=== PATIENT | male | born 1970 | race Caucasian/White ===

== ENCOUNTER 2020-05-05 15:32 | Outpatient (REF) | payer OTHER, SELFPAY | END 2020-05-05 15:33 | disposition home or self-care (01) | LOC: HO.LAB 15:32 | PROVIDERS: PCP Internal Medicine; Visit Provider Internal Medicine | DX: Z20.828 Contact with and (suspected) exposure to other viral communicable diseases (principal) | CPT/HCPCS: C9803; U0003 ==

== ENCOUNTER 2020-05-27 07:55 | Outpatient (REF) | payer OTHER, SELFPAY | END 2020-05-27 07:56 | disposition home or self-care (01) | LOC: HO.LAB 07:55 | PROVIDERS: PCP Internal Medicine; Visit Provider Internal Medicine | DX: Z20.828 Contact with and (suspected) exposure to other viral communicable diseases (principal) | CPT/HCPCS: C9803; U0003 ==

== ENCOUNTER 2020-07-29 07:18 | Outpatient (REF) | payer OTHER, SELFPAY | END 2020-07-29 07:19 | disposition home or self-care (01) | LOC: HO.LAB 07:18 | PROVIDERS: Visit Provider Internal Medicine | DX: Z20.822 Contact with and (suspected) exposure to COVID-19 (principal) | CPT/HCPCS: 36415; C9803; U0003; U0005 ==

== ENCOUNTER 2020-08-09 12:10 | Outpatient (REF) | payer OTHER, SELFPAY | END 2020-08-09 12:11 | disposition home or self-care (01) | LOC: HO.LAB 12:10 | PROVIDERS: Visit Provider Internal Medicine | DX: Z20.822 Contact with and (suspected) exposure to COVID-19 (principal) | CPT/HCPCS: 36415; C9803; U0003; U0005 ==

== ENCOUNTER 2020-11-06 16:27 | Outpatient (REF) | payer OTHER, SELFPAY ==
[2020-11-06 18:03] LABS: Appearance Urine HAZY; Color Urine YELLOW; Glucose Urine UA NEG (NEG); Leukocyte Esterase Urine NEG (NEG); Nitrite Urine NEG (NEG); Urine Blood NEG (NEG); Urine Ketones NEG (NEG); Urine Protein NEG (NEG-TRACE)
[2020-11-06 18:13] LABS: Bacteria Urine TRACE /LPF; Mucus Urine TRACE /LPF; RBC Urine 0-2 /HPF (0); WBC Urine 0-2 /HPF (0-4)
[2020-11-06 18:28] LABS: Total Protein Urine Random < 7 mg/dL (<12)
[2020-11-06 18:29] LABS: Anion Gap 12 (12-20); Blood Urea Nitrogen 23 mg/dL (9-16); Calcium 9.1 mg/dL (8.4-10.2); Carbon Dioxide 26 mmol/L (22-29); Chloride 107 mmol/L (96-108); Estimated Glomerular Filt Rate 49; Glucose Random 105 mg/dL (60-115); Potassium 4.4 mmol/L (3.3-5.1); Sodium 141 mmol/L (135-145)
[2020-11-06 18:39] LABS: Creatinine Urine 224.27 mg/dL
== END 2020-11-06 16:28 | disposition home or self-care (01) ==
LOC: HO.LAB 16:27
PROVIDERS: PCP Internal Medicine; Visit Provider Internal Medicine Nephrology
DX: N18.31 Chronic kidney disease, stage 3a (principal)
CPT/HCPCS: 36415; 80048; 81001; 84156

== ENCOUNTER 2021-06-07 11:16 | Outpatient (REF) | payer OTHER, SELFPAY ==
[2021-06-07 14:32] LABS: COVID-19 Test Negative (Negative); IDNOW Serial# 16C4AD1C
== END 2021-06-07 11:17 | disposition home or self-care (01) ==
LOC: HO.LAB 11:16
PROVIDERS: Visit Provider Internal Medicine
DX: Z20.822 Contact with and (suspected) exposure to COVID-19 (principal)
CPT/HCPCS: 36415; 87635; C9803

== ENCOUNTER 2021-11-14 12:08 | Outpatient (REF) | payer OTHER, SELFPAY ==
[2021-11-14 12:31] LABS: MANUAL DIFF FLAG NO
[2021-11-14 13:26] LABS: Basophils Percent Auto 0.2 % (0-2); Eosinophils Absolute Auto 0.2 X10*3/uL (0.0-0.4); Hematocrit 44.2 % (42.0-52.0); Hemoglobin 14.3 g/dl (14.0-18.0); Imm Gran Abs Auto 0.01 X10*3/uL (0.00-0.03); Imm Gran Pct Auto 0.2 % (0.0-0.4); Lymphocytes Absolute Auto 2.1 X10*3/uL (1.2-4.9); Lymphocytes Percent Auto 35.8 % (20-40); Mean Corpuscular HGB Conc 32.4 g/dl (31.0-36.0); Mean Corpuscular Hemoglobin 29.3 pg (27.0-33.0); Mean Corpuscular Volume 90.6 fL (80.0-98.0); Mean Platelet Volume 9.8 fL (9.4-12.4); Monocytes Absolute Auto 0.4 X10*3/uL (0.1-1.2); Monocytes Percent Auto 6.9 % (2-11); Neutrophils Absolute Auto 3.2 x10*3/uL (2.0-8.3); Neutrophils Percent Auto 52.9 % (45-73); Platelet Count 249 X10*3/uL (160-400); Red Blood Count 4.88 X10*6/uL (4.60-5.80); Red Cell Distribution Width 13.2 % (11.0-16.0)
[2021-11-14 13:49] LABS: Appearance Urine CLEAR; Color Urine YELLOW; Glucose Urine UA NEG (NEG); Leukocyte Esterase Urine NEG (NEG); Nitrite Urine NEG (NEG); PH 5.5 (5.0-8.0); Specific Gravity - Urine 1.025 (1.005-1.025); Urine Blood NEG (NEG); Urine Ketones NEG (NEG); Urine Protein NEG (NEG-TRACE)
[2021-11-14 14:12] LABS: Vitamin D 25-OH Total 16.4 ng/mL (>30)
[2021-11-14 14:21] LABS: RBC Urine 0 /HPF (0); WBC Urine 0 /HPF (0-4)
[2021-11-14 14:43] LABS: Anion Gap 14 (12-20); Blood Urea Nitrogen 18 mg/dL (9-16); Calcium 9.5 mg/dL (8.4-10.2); Carbon Dioxide 25 mmol/L (22-29); Chloride 104 mmol/L (96-108); Estimated Glomerular Filt Rate 42; Potassium 4.7 mmol/L (3.3-5.1); Sodium 138 mmol/L (135-145); Uric Acid 5.7 mg/dL (3.4-7.0)
[2021-11-14 14:55] LABS: Creatinine Urine 134.91 mg/dL; Total Protein Urine Random < 7 mg/dL (<12)
[2021-11-15 13:12] LABS: Calcium (PTHI) 9.5 mg/dL (8.6-10.3); PTHI 215 pg/mL (16-77)
== END 2021-11-14 12:09 | disposition home or self-care (01) ==
LOC: HO.LAB 12:08
PROVIDERS: PCP Internal Medicine; Visit Provider Internal Medicine Nephrology
DX: N18.31 Chronic kidney disease, stage 3a (principal)
CPT/HCPCS: 36415; 80051; 81001; 82306; 82310; 82565; 83970; 84156; 84520; 84550; 85025

== ENCOUNTER 2022-08-20 17:17 | Outpatient (REF) | payer OTHER, SELFPAY ==
[2022-08-20 17:28] LABS: MANUAL DIFF FLAG NO
[2022-08-20 19:45] LABS: Basophils Percent Auto 0.1 % (0-2); Eosinophils Absolute Auto 0.2 X10*3/uL (0.0-0.4); Eosinophils Percent Auto 3.6 % (0-4); Hemoglobin 14.9 g/dl (14.0-18.0); Imm Gran Abs Auto 0.02 X10*3/uL (0.00-0.03); Imm Gran Pct Auto 0.3 % (0.0-0.4); Lymphocytes Absolute Auto 2.7 X10*3/uL (1.2-4.9); Mean Corpuscular HGB Conc 33.1 g/dl (31.0-36.0); Mean Corpuscular Hemoglobin 29.7 pg (27.0-33.0); Mean Corpuscular Volume 89.8 fL (80.0-98.0); Monocytes Absolute Auto 0.4 X10*3/uL (0.1-1.2); Monocytes Percent Auto 6.6 % (2-11); Neutrophils Absolute Auto 3.3 x10*3/uL (2.0-8.3); Neutrophils Percent Auto 49.4 % (45-73); Platelet Count 269 X10*3/uL (160-400); Red Blood Count 5.01 X10*6/uL (4.60-5.80); Red Cell Distribution Width 13.3 % (11.0-16.0); White Blood Count 6.7 X10*3/uL (4.8-10.8)
[2022-08-20 20:04] LABS: Alanine Aminotransferase 36 U/L (0-40); Albumin Level 4.5 g/dL (3.5-5.0); Alkaline Phosphatase 82 U/L (39-117); Anion Gap 16 (12-20); Aspartate Amino Transferase 21 U/L (5-37); Bilirubin Total 0.4 mg/dL (0.0-1.0); Blood Urea Nitrogen 20 mg/dL (9-16); Calcium 9.1 mg/dL (8.4-10.2); Carbon Dioxide 23 mmol/L (22-29); Chloride 107 mmol/L (96-108); Estimated Glomerular Filt Rate 44; Glucose Random 77 mg/dL (60-115); Lipase 31 U/L (8-78); Potassium 5.2 mmol/L (3.3-5.1); Sodium 141 mmol/L (135-145); Total Protein 7.4 g/dL (6.5-8.0)
== END 2022-08-20 17:18 | disposition home or self-care (01) ==
LOC: HO.LAB 17:17
PROVIDERS: PCP Internal Medicine; Visit Provider Nurse Practitioner Family
DX: R10.12 Left upper quadrant pain (principal)
CPT/HCPCS: 36415; 80053; 83690; 85025

== ENCOUNTER 2022-09-03 08:08 | Outpatient (REF) | payer OTHER, SELFPAY ==
--- NOTE | ~2022-09-03 | US_ITS ---
EXAMINATION: US ABDOMEN LIMITED CLINICAL INFORMATION: Left upper quadrant pain. COMPARISON: CT abdomen and pelvis without contrast 01/05/2013. TECHNIQUE: Real-time imaging of the abdominal viscera. FINDINGS: LEFT KIDNEY: There is a simple cyst measuring 0.7 cm in the mid to lower pole, for which no imaging follow-up is recommended. There is a focal area of parenchymal thinning in the lateral surface of the lower pole, nonspecific. No hydronephrosis or renal calculi. The kidney measures 10.3 cm in maximum dimension. SPLEEN: Normal. The spleen measures 10.9 cm in maximum dimension. US/US abdomen limited IMPRESSION: No acute sonographic abnormalities to explain the patient's symptoms.
== END 2022-09-03 08:09 | disposition home or self-care (01) ==
LOC: HO.US 08:08
PROVIDERS: PCP Internal Medicine; Visit Provider Nurse Practitioner Family
DX: R10.12 Left upper quadrant pain (principal)
CPT/HCPCS: 76705

== ENCOUNTER 2022-10-29 15:48 | Outpatient (AMB) | payer OTHER, SELFPAY ==
--- NOTE | 2022-10-29 16:07 | MHC.PC.OV ---
Vital Signs 10/29/22 16:08 Height 5 ft 7.5 in Weight 223 lb BMI 34.4 BP 124/82 Blood Pressure Location Lt brachial Position Sitting Pulse 74 Pulse Source Pulse Oximeter Pulse Oximetry (%) 97 Oxygen Delivery Method Room Air Intake Visit Reasons: Annul PE Intake Note: Patient is here for physical exam. [employer] Vehicle Required: No Accompanied by: Self / Same As Patient Allergies NSAIDS (Non-Steroidal Anti-Inflamma [NSAIDS (NON-STEROIDAL ANTI-INFLAMMA] Allergy (Severe, Verified 03/26/23 15:14) ANGIOEDEMA aspirin Allergy (Unknown, Verified 03/26/23 15:14) swollen face ibuprofen Allergy (Unknown, Verified 03/26/23 15:14) swollen face shellfish derived Allergy (Unknown, Verified 03/26/23 15:14) rash Medication List - Last Reconciled 10/29/22 by Compa Whiting MD simethicone (Gas Relief (simethicone)) 80 mg PO TID-QID PRN Tobacco use date assessed: 10/29/22 HPI Annul PE HPI Details Patient comes in today for his annual physical examination States that he feels okay Was seen here last month by another provider for intermittent abdominal bloating and he would like to know how his labs came out He denies any headaches or dizziness Denies any chest pains, no shortness of breath No nausea /vomiting, no abdominal pain No change in bowel habits noted States that he has been experiencing some urinary frequency lately, especially at night; denies any dysuria Would also like to get a referral to get his hearing checked - states that he has been experiencing a recurrent ringing sensation in his left ear lately and has noticed some decrease in his hearing as well States that he has never had a colonoscopy done in the past FORMERLY [facility], [facility]1983 Medical History Allergic rhinitis Obesity (BMI 30-39.9) Vitamin D deficiency Pure hypercholesterolemia Chronic kidney disease, stage III (moderate) Surgical History History of surgery Family History Father No problems noted. Mother No problems noted. Sister No problems noted. Son No problems noted. Other FH: mental illness Substance abuse Social History Housing: House Alcohol intake: current Alcohol intake frequency: a few times a week Patient Tobacco Use Status: Current someday Tobacco user Years Smoked: pt states rarely e-Cigarette/Vaping Use: Never Used service: No Current occupational status: employed Cognitive needs: No Hearing needs: No Vision needs: No Questionnaire PHQ-9 Over the last 2 weeks, how often have you been bothered by any of the following problems? 1. Little interest or pleasure in doing things: not at all 2. Feeling down, depressed, or hopeless: not at all 3. Trouble falling or staying asleep, or sleeping too much: not at all 4. Feeling tired or having little energy: not at all 5. Poor appetite or overeating: not at all 6. Feeling bad about yourself - or that you are a failure or have let yourself or your family down: not at all 7. Trouble concentrating on things, such as reading the newspaper or watching television: not at all 8. Moving or speaking so slowly that other people could have noticed. Or the opposite - being so fidgety or restless that you have been moving around a lot more than usual: not at all 9. Thoughts that you would be better off or of hurting yourself in some way: not at all Total score: 0 Depression Screening Interpretation: Negative 27739 - PHQ-9 Billing: Yes Source: Developed by Drs. Scottie Conde, Lisette Tillman, Silas Patterson and colleagues, with an educational enoch from [employer]. Thrive Questionnaire Date Thrive assessed: 10/29/22 I am a: Patient What is your living situation today?: I have a steady place to live Within the past 12 months, did the food you bought not last and you didn't have the money to get more?: Never true Within the past 12 months, did you worry whether your food would run out before you got money to buy more?: Never true Do you have trouble paying for medicines?: No Do you have trouble getting transportation to medical appointments?: No Do you have trouble paying your heating and electricity bill?: No Do you have trouble taking care of your child, family member or friend?: No Do you have trouble with day-to-day activities such as bathing, preparing meals, shopping, managing finances, etc.?: No Are you currently unemployed and looking for a job?: No Are you interested in more education?: No Currently or been in a relationship where the following occur: no concerns reported AUDIT C Alcohol Use Questionnaire (AUDIT-C) 1. How often do you have a drink containing alcohol?: 2-3 times a week 2. How many drinks containing alcohol do you have on a typical day when you are drinking?: 1 or 2 3. How often do you have six or more drinks on one occasion?: Never Total Score: 3 Score Reviewed/Action Taken: Yes NESSA-7 AMB Questionnaire NESSA-7 Date NESSA - 7 assessed: 10/29/22 Feeling nervous, anxious, or on edge: 0 = Not at all Not being able to stop or control worryin = Not at all Worrying too much about different things: 0 = Not at all Trouble relaxin = Not at all Being so restless that it is hard to sit still: 0 = Not at all Becoming easily annoyed or irritable: 0 = Not at all Feeling afraid as if something awful might happen: 0 = Not at all Total NESSA-7 score (0-4 normal; 5-9 mild; 10-14 moderate; 15-21 severe): 0 Source: Developed by Drs. Scottie Conde, Lisette Tillman, Silas Patterson and colleagues, with an educational enoch from [employer]. NESSA-7 Assessment Billing NESSA-7 Assessment Tool: NESSA-7 Assessment 88497 Review of Systems Const Denies chills, Denies fatigue, Denies fever(s), Denies headache(s), Denies malaise and Denies weakness Eyes Denies blurry vision, Denies change in vision, Denies irritation and Denies itchy eyes ENT Denies dysphagia, Denies dizziness, Denies otalgia, Denies headache(s), Denies nasal congestion, Denies neck pain, Denies odynophagia and Denies sore throat Card Denies chest pain, Denies rapid heart rate, Denies irregular heart rhythm, Denies palpitations and Denies dyspnea Resp Denies chest congestion, Denies cough, Denies dyspnea and Denies wheezing GI Denies abdominal pain, Denies bloating, Denies constipation, Denies dysphagia, Denies heartburn, Denies diarrhea, Denies nausea, Denies odynophagia and Denies vomiting Denies hematuria, Denies difficulty urinating, Denies dysuria, Denies urinary frequency and Denies urinary urgency Musc Denies back pain, Denies arthralgias, Denies joint swelling, Denies muscle weakness and Denies neck pain Skin/Breast Denies change in pigmentation, Denies lesions, Denies rash and Denies unusual bruising Neuro Denies dizziness, Denies headache(s), Denies paresthesias and Denies weakness Endo Denies fatigue and Denies palpitations Aller/Immun Denies itchy eyes and Denies wheezing Physical exam (Primary Care) Vital Signs: Last Vital Signs Pulse 74 10/29/22 16:08 BP 124/82 10/29/22 16:08 Pulse Ox 97 10/29/22 16:08 Oxygen Delivery Method Room Air 10/29/22 16:08 BMI result Body Mass Index 34.4 Tobacco/Smoking Status: Tobacco use Status Tobacco use date assessed 10/29/22 10/29/22 16:13 Patient Tobacco Use Status Current someday Tobacco 10/29/22 16:13 e-Cigarette/Vaping Use Never Used 10/29/22 16:13 PHQ-9: PHQ-9 Score PHQ-9: Total score 0 10/29/22 17:06 Depression Screening Interpretation: Negative Thrive Assessment: Date of Thrive Assessment Date Thrive assessed 10/29/22 10/29/22 16:13 Currently or been in a relationship where the following occur: no concerns reported Const General: no acute distress, alert and awake Orientation/consciousness: patient oriented x3 HENMT Head: Yes normocephalic and Yes atraumatic Ears: external ears normal, TM's normal bilaterally and EAC's normal General nose exam: No nasal discharge present Face and sinus: Yes normal facial exam and Yes sinuses nontender Teeth and gingiva: dentition normal Throat: Yes posterior oropharynx normal and Yes tonsils normal (no TP congestion) Eyes Eyelids: Yes eyelids normal Conjunctivae: conjunctivae normal Pupils: Equal, round and reactive pupils present EOM: EOMs intact bilaterally Neck Neck: Yes no lymphadenopathy and Yes supple Thyroid: Thyroid normal Resp Auscultation: clear to auscultation bilaterally, no rales and no wheezes Cardio Rate: regular rate Rhythm: regular rhythm Heart sounds: no murmurs GI Palpation (GI): Soft to palpation, nontender and No hepatosplenomegaly present Auscultation: normal bowel sounds General: Yes no CVA tenderness Back/Spine/Pelvis Back: no CVA tenderness Thoracic/Lumbar Spine: thoracic and lumbar spine normal to inspection Skin Lesions: no lesions Rashes: no rashes Neuro General: patient oriented x3, moves all extremities, no focal motor deficits and CN's II-XI intact bilaterally Cranial nerves: Yes Equal, round and reactive pupils present Cognition (Neuro): normal cognition Gait exam (Neuro): Normal gait present Extrem General: Yes no clubbing, cyanosis or edema Results Reviewed Results Reviewed: Laboratory Tests 08/20/22 17:26 WBC 6.7 Hgb 14.9 Hct 45.0 Plt Count 269 Sodium 141 Potassium 5.2 H Creatinine 1.66 H Estimated GFR 44 Random Glucose 77 Calcium 9.1 AST 21 ALT 36 Lipase 31 Assessment and Plan Assessment & Plan (1) Annual physical exam: Code(s): Z00.00 - Encounter for general adult medical examination without abnormal findings Plan: Check labs MERCEDES Results of his labs done last month reviewed and discussed with patient (2) Pure hypercholesterolemia: Code(s): E78.00 - Pure hypercholesterolemia, unspecified Plan: Reinforced low cholesterol diet - he is reminded that his cholesterol levels were still elevated when last checked back in 2019 Will recheck his fasting lipids MERCEDES for follow up (3) Chronic kidney disease, stage III (moderate): Comment: sees Dr. Fung for nephrology follow up since 2013 Code(s): N18.30 - Chronic kidney disease, stage 3 unspecified Qualifiers: Chronic kidney disease stage 3 subtype: stage 3b (GFR 30-44) Qualified Code(s): N18.32 - Chronic kidney disease, stage 3b Plan: Stable Renal Bx done in the past only showed (+) tubular injury Will recheck his serum creatinine and GFR for follow up Follow up with nephrology (Dr. Fung) as scheduled (4) Vitamin D deficiency: Code(s): E55.9 - Vitamin D deficiency, unspecified Plan: Advised that his Vitamin D level was low when last checked Will start him back on Vitamin D3 2000 units QD (5) Hyperparathyroidism: Code(s): E21.3 - Hyperparathyroidism, unspecified Plan: Serum PTH level was significantly elevated when checked last year in 11/2021 - is likely secondary hyperparathyroidism due to his low Vitamin D level Will start him back on Vitamin D and will recheck his PTH level in a few months when his Vitamin D level is corrected (6) Allergic rhinitis: Code(s): J30.9 - Allergic rhinitis, unspecified Qualifiers: Allergic rhinitis trigger: unspecified Allergic rhinitis seasonality: unspecified Qualified Code(s): J30.9 - Allergic rhinitis, unspecified Plan: Continue Fluticasone 50 mcg nasal spray QD PRN (7) Tinnitus of left ear: Code(s): H93.12 - Tinnitus, left ear Plan: Per request, will refer him for hearing evaluation (8) Erectile dysfunction: Code(s): N52.9 - Male erectile dysfunction, unspecified Qualifiers: Erectile dysfunction type: unspecified Qualified Code(s): N52.9 - Male erectile dysfunction, unspecified Plan: Continue Sildenafil 50 mg QD PRN (9) Urinary frequency: Code(s): R35.0 - Frequency of micturition Plan: Likely due to BPH Will check his PSA level MERCEDES for further evaluation Will start patient for now on Tamsulosin 0.4 mg Q HS Will consider referring him to urology for further evaluation and management, especially if his PSA comes back elevated (10) Obesity (BMI 30-39.9): Code(s): E66.9 - Obesity, unspecified Plan: Reinforced diet/exercise as tolerated/lose weight (11) Encounter for screening for malignant neoplasm of colon: Code(s): Z12.11 - Encounter for screening for malignant neoplasm of colon Plan: Will refer patient to GI for screening colonoscopy Plan Follow up in 4 months Orders: Orders Comprehensive Merlin. Panel Fast 10/29/22 Z00.00 - Encounter for general adult medical examination without abnormal findings, N18.30 - Chronic kidney disease, stage 3 unspecified Lipid Panel 10/29/22 E78.00 - Pure hypercholesterolemia, unspecified, Z00.00 - Encounter for general adult medical examination without abnormal findings, N18.30 - Chronic kidney disease, stage 3 unspecified Prostate Specific Antigen Scr 10/29/22 Z00.00 - Encounter for general adult medical examination without abnormal findings, N18.30 - Chronic kidney disease, stage 3 unspecified UA CC w/rflx Micro + Cult 10/29/22 R30.0 - Dysuria, Z00.00 - Encounter for general adult medical examination without abnormal findings, N18.30 - Chronic kidney disease, stage 3 unspecified TSH reflex Free T4 10/29/22 E78.00 - Pure hypercholesterolemia, unspecified, Z00.00 - Encounter for general adult medical examination without abnormal findings, N18.30 - Chronic kidney disease, stage 3 unspecified Hemoglobin A1c 10/29/22 E11.9 - Type 2 diabetes mellitus without complications, Z00.00 - Encounter for general adult medical examination without abnormal findings, N18.30 - Chronic kidney disease, stage 3 unspecified Magnesium 10/29/22 E83.42 - Hypomagnesemia, Z00.00 - Encounter for general adult medical examination without abnormal findings, N18.30 - Chronic kidney disease, stage 3 unspecified Vitamin D 25-OH Total 10/29/22 E55.9 - Vitamin D deficiency, unspecified, Z00.00 - Encounter for general adult medical examination without abnormal findings, N18.30 - Chronic kidney disease, stage 3 unspecified Complete Blood Count Auto Diff 10/29/22 Z00.00 - Encounter for general adult medical examination without abnormal findings, N18.30 - Chronic kidney disease, stage 3 unspecified Referrals Speech and Hearing Referral H91.90 - Unspecified hearing loss, unspecified ear, H93.12 - Tinnitus, left ear Gastroenterology Referral Z12.11 - Encounter for screening for malignant neoplasm of colon Medications: New tamsulosin 0.4 mg PO BEDTIME 90 caps 1RF 90 days N40.1 - Benign prostatic hyperplasia with lower urinary tract symptoms, R35.1 - Nocturia cholecalciferol (vitamin D3) 50 mcg PO DAILY 90 caps 3RF 90 days E55.9 - Vitamin D deficiency, unspecified Coding Level of Care Code Est Pt Prev Care 40-64y(56016) Diagnoses Annual physical exam Z00.00 Pure hypercholesterolemia E78.00 Stage 3b chronic kidney disease N18.32 Chronic kidney disease stage 3 subtype: stage 3b (GFR 30-44) Vitamin D deficiency E55.9 Hyperparathyroidism E21.3 Allergic rhinitis, unspecified seasonality, unspecified trigger J30.9 Allergic rhinitis trigger: unspecified Allergic rhinitis seasonality: unspecified Tinnitus of left ear H93.12 Erectile dysfunction, unspecified erectile dysfunction type N52.9 Erectile dysfunction type: unspecified Urinary frequency R35.0 Obesity (BMI 30-39.9) E66.9 Encounter for screening for malignant neoplasm of colon Z12.11 Additional Codes NESSA-7 Assessment Billing - NESSA-7 Assessment Tool: NESSA-7 Assessment [id number] ([id number])
[2022-10-29 16:08] VITALS: BP 124/82; PULSE 74; O2SAT 97; BMI 34.4
== END 2022-10-29 17:09 | disposition home or self-care (01) ==
LOC: HO.HMGH 15:48
PROVIDERS: PCP Internal Medicine; Visit Provider Internal Medicine
DX: Z00.00 Encounter for general adult medical examination without abnormal findings (principal); N18.32 Chronic kidney disease, stage 3b; E21.3 Hyperparathyroidism, unspecified; E78.00 Pure hypercholesterolemia, unspecified; E55.9 Vitamin D deficiency, unspecified; J30.9 Allergic rhinitis, unspecified; H93.12 Tinnitus, left ear; N52.9 Male erectile dysfunction, unspecified; R35.0 Frequency of micturition; E66.9 Obesity, unspecified
CPT/HCPCS: 99396

== ENCOUNTER 2022-11-22 07:14 | Outpatient (REF) | payer OTHER, SELFPAY ==
[2022-11-22 07:23] LABS: MANUAL DIFF FLAG NO
[2022-11-22 07:47] LABS: Basophils Percent Auto 0.2 % (0-2); Eosinophils Absolute Auto 0.2 X10*3/uL (0.0-0.4); Eosinophils Percent Auto 3.8 % (0-4); Hematocrit 45.4 % (42.0-52.0); Hemoglobin 14.7 g/dl (14.0-18.0); Imm Gran Abs Auto 0.03 X10*3/uL (0.00-0.03); Imm Gran Pct Auto 0.5 % (0.0-0.4); Lymphocytes Absolute Auto 2.2 X10*3/uL (1.2-4.9); Lymphocytes Percent Auto 36.3 % (20-40); Mean Corpuscular HGB Conc 32.4 g/dl (31.0-36.0); Mean Corpuscular Hemoglobin 29.5 pg (27.0-33.0); Mean Platelet Volume 9.8 fL (9.4-12.4); Monocytes Absolute Auto 0.4 X10*3/uL (0.1-1.2); Monocytes Percent Auto 7.1 % (2-11); Neutrophils Absolute Auto 3.2 x10*3/uL (2.0-8.3); Neutrophils Percent Auto 52.1 % (45-73); Platelet Count 242 X10*3/uL (160-400); Red Blood Count 4.99 X10*6/uL (4.60-5.80); Red Cell Distribution Width 13.4 % (11.0-16.0)
[2022-11-22 07:55] LABS: Estimated Average Glucose 97 mg/dL
[2022-11-22 08:31] LABS: Alanine Aminotransferase 47 U/L (0-40); Albumin Level 4.2 g/dL (3.5-5.0); Alkaline Phosphatase 89 U/L (39-117); Anion Gap 12 (12-20); Aspartate Amino Transferase 25 U/L (5-37); Bilirubin Total 0.4 mg/dL (0.0-1.0); Blood Urea Nitrogen 26 mg/dL (9-16); Calcium 9.2 mg/dL (8.4-10.2); Carbon Dioxide 23 mmol/L (22-29); Chloride 109 mmol/L (96-108); Cholesterol 252 mg/dL; Estimated Glomerular Filt Rate 49; Glucose Fasting 98 mg/dL (60-99); HDL Cholesterol 35 mg/dL; LDL Cholesterol Calculated 171 mg/dl; Magnesium 2.7 mg/dL (1.6-2.6); Potassium 4.9 mmol/L (3.3-5.1); Sodium 139 mmol/L (135-145); Total Protein 7.1 g/dL (6.5-8.0); Triglycerides 234 mg/dL
[2022-11-22 08:37] LABS: Prostate Specific Antigen Scr 0.67 ng/mL (<0.05-4.0); TSH reflex Free T4 2.47 uIU/mL (0.32-4.0)
[2022-11-22 08:49] LABS: Appearance Urine Clear; Color Urine Yellow; Glucose Urine UA Negative (Negative); Leukocyte Esterase Urine Negative (Negative); Nitrite Urine Negative (Negative); Specific Gravity - Urine 1.025 (1.005-1.025); Urine Blood Negative (Negative); Urine Ketones Negative (Negative); Urine Protein Negative (Neg-Trace)
== END 2022-11-22 07:15 | disposition home or self-care (01) ==
LOC: HO.LAB 07:14
PROVIDERS: PCP Internal Medicine; Referring Provider Internal Medicine Nephrology; Visit Provider Internal Medicine
DX: Z00.00 Encounter for general adult medical examination without abnormal findings (principal); Z12.5 Encounter for screening for malignant neoplasm of prostate; N18.30 Chronic kidney disease, stage 3 unspecified; R30.0 Dysuria; E11.9 Type 2 diabetes mellitus without complications; E55.9 Vitamin D deficiency, unspecified; E78.00 Pure hypercholesterolemia, unspecified
CPT/HCPCS: 36415; 80053; 80061; 81003; 82306; 83036; 83735; 84153; 84443; 85025

== ENCOUNTER 2023-03-10 16:28 | Outpatient (AMB) | payer OTHER, SELFPAY ==
--- NOTE | 2023-03-10 16:29 | A.OFFPC_ITS ---
Vital Signs 03/10/23 16:30 Height 5 ft 7.5 in Weight 226 lb 2 oz BMI 34.9 BP 126/78 Blood Pressure Location Lt brachial Position Sitting Pulse 65 Pulse Source Pulse Oximeter Pulse Oximetry (%) 97 Oxygen Delivery Method Room Air Intake Visit Reasons: CKD Hearing Specialist Required: No Accompanied by: Self / Same As Patient Allergies NSAIDS (Non-Steroidal Anti-Inflamma [NSAIDS (NON-STEROIDAL ANTI-INFLAMMA] Allergy (Severe, Verified 03/26/23 15:14) ANGIOEDEMA aspirin Allergy (Unknown, Verified 03/26/23 15:14) swollen face ibuprofen Allergy (Unknown, Verified 03/26/23 15:14) swollen face shellfish derived Allergy (Unknown, Verified 03/26/23 15:14) rash Medication List - Last Reconciled 03/24/23 by Compa Whiting MD cholecalciferol (vitamin D3) 50 mcg PO DAILY 90 days fluticasone propionate 50 mcg/actuation 2 sprays intranasal DAILY PRN 30 days sildenafil 50 mg PO DAILY PRN simethicone (Gas Relief (simethicone)) 80 mg PO TID-QID PRN tamsulosin 0.4 mg PO BEDTIME 90 days Tobacco use date assessed: 03/10/23 Dental Screening Dental Screen Date: 03/10/23 Did you have a dental visit in the last 12 months?: Yes Did you have a dental problem in the last 6 months where you did not have access to dental care?: No Was dental information given to patient?: Patient has dentist HPI CKD HPI Details Patient comes in today for his follow-up visit States that he feels okay He denies any headaches or dizziness Denies any chest pains, no shortness of breath No nausea/ vomiting, no abdominal pain No change in bowel habits noted Needs a couple of his Rx refilled Would like to know how he did on his labs done a few months ago [facility] Medical History Allergic rhinitis Obesity (BMI 30-39.9) Vitamin D deficiency Pure hypercholesterolemia Chronic kidney disease, stage III (moderate) Surgical History History of surgery Family History Father No problems noted. Mother No problems noted. Sister No problems noted. Son No problems noted. Other FH: mental illness Substance abuse Social History Housing: House Alcohol intake: current Alcohol intake frequency: a few times a week Patient Tobacco Use Status: Current someday Tobacco user Years Smoked: pt states rarely e-Cigarette/Vaping Use: Never Used service: No Current occupational status: employed Cognitive needs: No Hearing needs: No Vision needs: No Questionnaire PHQ-9 Over the last 2 weeks, how often have you been bothered by any of the following problems? 1. Little interest or pleasure in doing things: not at all 2. Feeling down, depressed, or hopeless: not at all 3. Trouble falling or staying asleep, or sleeping too much: not at all 4. Feeling tired or having little energy: not at all 5. Poor appetite or overeating: not at all 6. Feeling bad about yourself - or that you are a failure or have let yourself or your family down: not at all 7. Trouble concentrating on things, such as reading the newspaper or watching television: not at all 8. Moving or speaking so slowly that other people could have noticed. Or the opposite - being so fidgety or restless that you have been moving around a lot more than usual: not at all 9. Thoughts that you would be better off or of hurting yourself in some way: not at all Total score: 0 Depression Screening Interpretation: Negative 20121 - PHQ-9 Billing: Yes Source: Developed by Drs. Scottie Conde, Lisette Tillman, Silas Patterson and colleagues, with an educational enoch from [employer]. Thrive Questionnaire Date Thrive assessed: 03/10/23 I am a: Patient What is your living situation today?: I have a steady place to live Within the past 12 months, did the food you bought not last and you didn't have the money to get more?: Never true Within the past 12 months, did you worry whether your food would run out before you got money to buy more?: Never true Do you have trouble paying for medicines?: No Do you have trouble getting transportation to medical appointments?: No Do you have trouble paying your heating and electricity bill?: No Do you have trouble taking care of your child, family member or friend?: No Do you have trouble with day-to-day activities such as bathing, preparing meals, shopping, managing finances, etc.?: No Are you currently unemployed and looking for a job?: No Are you interested in more education?: No Please select the resources that you would like help with: None Currently or been in a relationship where the following occur: no concerns reported AUDIT C Alcohol Use Questionnaire (AUDIT-C) 1. How often do you have a drink containing alcohol?: 2-3 times a week 2. How many drinks containing alcohol do you have on a typical day when you are drinking?: 1 or 2 3. How often do you have six or more drinks on one occasion?: Never Total Score: 3 Score Reviewed/Action Taken: Yes NESSA-7 AMB Questionnaire NESSA-7 Date NESSA - 7 assessed: 03/10/23 Feeling nervous, anxious, or on edge: 0 = Not at all Not being able to stop or control worryin = Not at all Worrying too much about different things: 0 = Not at all Trouble relaxin = Not at all Being so restless that it is hard to sit still: 0 = Not at all Becoming easily annoyed or irritable: 0 = Not at all Feeling afraid as if something awful might happen: 0 = Not at all Total NESSA-7 score (0-4 normal; 5-9 mild; 10-14 moderate; 15-21 severe): 0 Source: Developed by Drs. Scottie Conde, Lisette Tillman, Silas Patterson and colleagues, with an educational enoch from [employer]. NESSA-7 Assessment Billing NESSA-7 Assessment Tool: NESSA-7 Assessment 97405 Review of Systems Const Denies chills, Denies fatigue, Denies fever(s) and Denies headache(s) ENT Denies dysphagia, Denies dizziness, Denies otalgia, Denies headache(s), Denies n cameron pain, Denies odynophagia and Denies sore throat Card Denies chest pain, Denies palpitations and Denies dyspnea Resp Denies cough and Denies dyspnea GI Denies abdominal pain, Denies constipation, Denies dysphagia, Denies heartburn, Denies diarrhea, Denies nausea, Denies odynophagia and Denies vomiting Denies dysuria, Denies nocturia and Denies urinary frequency Musc Denies neck pain Skin/Breast Denies rash Neuro Denies dizziness and Denies headache(s) Endo Denies fatigue and Denies palpitations Physical exam (Primary Care) Vital Signs: Last Vital Signs Pulse 65 03/10/23 16:30 BP 126/78 03/10/23 16:30 Pulse Ox 97 03/10/23 16:30 Oxygen Delivery Method Room Air 03/10/23 16:30 BMI result Body Mass Index 34.9 Tobacco/Smoking Status: Tobacco use Status Tobacco use date assessed 03/10/23 03/10/23 16:43 Patient Tobacco Use Status Current someday Tobacco 03/10/23 16:43 e-Cigarette/Vaping Use Never Used 03/10/23 16:43 PHQ-9: PHQ-9 Score PHQ-9: Total score 0 03/24/23 03:09 Depression Screening Interpretation: Negative Thrive Assessment: Date of Thrive Assessment Date Thrive assessed 03/10/23 03/10/23 16:43 Currently or been in a relationship where the following occur: no concerns reported Const General: no acute distress and alert HENMT Ears: TM's normal bilaterally and EAC's normal Throat: Yes posterior oropharynx normal and Yes tonsils normal (no TP congestion) Neck Neck: Yes no lymphadenopathy and Yes supple Resp Auscultation: clear to auscultation bilaterally, no rales and no wheezes Cardio Rate: regular rate Rhythm: regular rhythm Heart sounds: no murmurs GI Palpation (GI): Soft to palpation and nontender Auscultation: normal bowel sounds Skin General skin exam: no rashes or lesions noted Extrem General: Yes no clubbing, cyanosis or edema Results Reviewed Results Reviewed: Laboratory Tests 11/22/22 07:22 WBC 6.0 Hgb 14.7 Hct 45.4 Plt Count 242 Sodium 139 Potassium 4.9 Creatinine 1.53 H Estimated GFR 49 Fasting Glucose 98 Hemoglobin A1c % 5.0 Calcium 9.2 Magnesium 2.7 H AST 25 ALT 47 H Triglycerides 234 Cholesterol 252 LDL Cholesterol, Calc 171 HDL Cholesterol 35 PSA Screen 0.67 25-OH Vitamin D Total 22.0 TSH 2.47 Urine pH 5.0 Ur Specific [place] 1.025 Urine Protein Negative Urine Glucose (UA) Negative Urine Blood Negative Assessment and Plan Assessment & Plan (1) Pure hypercholesterolemia: Code(s): E78.00 - Pure hypercholesterolemia, unspecified Plan: Results of his labs done a few months ago reviewed and discussed with patient - advised that his serum cholesterol levels have improved slightly but are still elevated, with his LDL cholesterol at around 171 mg/dl and total cholesterol at 252 mg/dl Reinforced low cholesterol diet; patient prefers to continue with diet modification alone for now Will recheck his labs and fasting lipids in 4 months for follow up (2) Chronic kidney disease, stage III (moderate): Comment: sees Dr. Fung for nephrology follow up since 2013 Code(s): N18.30 - Chronic kidney disease, stage 3 unspecified Qualifiers: Chronic kidney disease stage 3 subtype: stage 3b (GFR 30-44) Qualified Code(s): N18.32 - Chronic kidney disease, stage 3b Plan: Stable - advised that his GFR and serum creatinine levels have actually improved slightly from previous Renal Bx done in the past only showed (+) tubular injury Follow up with nephrology (Dr. Fung) as scheduled (3) Vitamin D deficiency: Code(s): E55.9 - Vitamin D deficiency, unspecified Plan: Continue Vitamin D3 2000 units QD (4) Hyperparathyroidism: Code(s): E21.3 - Hyperparathyroidism, unspecified Plan: Serum PTH level was significantly elevated when last checked last year in 11/2021 - is likely secondary hyperparathyroidism due to Vitamin D deficiency Will correct Vitamin D level and recheck PTH in a few months (5) Allergic rhinitis: Code(s): J30.9 - Allergic rhinitis, unspecified Qualifiers: Allergic rhinitis seasonality: unspecified Allergic rhinitis trigger: unspecified Qualified Code(s): J30.9 - Allergic rhinitis, unspecified Plan: Continue Fluticasone 50 mcg nasal spray QD PRN (6) Erectile dysfunction: Code(s): N52.9 - Male erectile dysfunction, unspecified Qualifiers: Erectile dysfunction type: unspecified Qualified Code(s): N52.9 - Male erectile dysfunction, unspecified Plan: Continue Sildenafil 50 mg QD PRN (7) Obesity (BMI 30-39.9): Code(s): E66.9 - Obesity, unspecified Plan: Reinforced diet/exercise as tolerated/lose weight Plan Follow up in 4 months Orders: Orders TSH reflex Free T4 4 Months E78.00 - Pure hypercholesterolemia, unspecified, N18.30 - Chronic kidney disease, stage 3 unspecified Vitamin D 25-OH Total 4 Months E55.9 - Vitamin D deficiency, unspecified, N18.30 - Chronic kidney disease, stage 3 unspecified Testosterone, Free/Total 4 Months R79.89 - Other specified abnormal findings of blood chemistry, N52.9 - Male erectile dysfunction, unspecified Complete Blood Count Auto Diff 4 Months N18.30 - Chronic kidney disease, stage 3 unspecified Comprehensive [place]. Panel Fast 4 Months E78.00 - Pure hypercholesterolemia, unspecified, N18.30 - Chronic kidney disease, stage 3 unspecified Lipid Panel 4 Months E78.00 - Pure hypercholesterolemia, unspecified, N18.30 - Chronic kidney disease, stage 3 unspecified UA CC w/rflx Micro + Cult 4 Months R30.0 - Dysuria, N18.30 - Chronic kidney disease, stage 3 unspecified PTHI 4 Months E21.3 - Hyperparathyroidism, unspecified, N18.30 - Chronic kidney disease, stage 3 unspecified Medications: New sildenafil administer 30 minutes to 4 hours before activity 50 mg PO DAILY PRN 10 tabs 0RF sexual activity fluticasone propionate 50 mcg/actuation administer into each nostril 2 sprays intranasal DAILY PRN 16 grams 5RF allergy symptoms 30 days Coding Level of Care Code Est Pt Level 4 (33896) Diagnoses Pure hypercholesterolemia E78.00 Stage 3b chronic kidney disease N18.32 Chronic kidney disease stage 3 subtype: stage 3b (GFR 30-44) Vitamin D deficiency E55.9 Hyperparathyroidism E21.3 Allergic rhinitis, unspecified seasonality, unspecified trigger J30.9 Allergic rhinitis seasonality: unspecified Allergic rhinitis trigger: unspecified Erectile dysfunction, unspecified erectile dysfunction type N52.9 Erectile dysfunction type: unspecified Obesity (BMI 30-39.9) E66.9 Additional Codes NESSA-7 Assessment Billing - NESSA-7 Assessment Tool: NESSA-7 Assessment 85146 ([id number])
[2023-03-10 16:30] VITALS: BP 126/78; PULSE 65; O2SAT 97; BMI 34.9
== END 2023-03-10 17:18 | disposition home or self-care (01) ==
PROVIDERS: PCP Internal Medicine; Visit Provider Internal Medicine
DX: N18.32 Chronic kidney disease, stage 3b (principal); E21.3 Hyperparathyroidism, unspecified; Z68.34 Body mass index [BMI] 34.0-34.9, adult; E66.9 Obesity, unspecified; J30.9 Allergic rhinitis, unspecified; E78.00 Pure hypercholesterolemia, unspecified; E55.9 Vitamin D deficiency, unspecified; N52.9 Male erectile dysfunction, unspecified
CPT/HCPCS: 99214

== ENCOUNTER 2023-03-18 15:29 | Outpatient (REF) | payer OTHER, SELFPAY | END 2023-03-18 15:30 | disposition home or self-care (01) | LOC: HO.SH 15:29 | PROVIDERS: Visit Provider Internal Medicine | DX: H93.12 Tinnitus, left ear (principal) | CPT/HCPCS: 92557; 92567 ==

== ENCOUNTER 2023-03-26 15:00 | Outpatient (AMB) | payer OTHER, SELFPAY ==
--- NOTE | 2023-03-26 15:07 | A.OFFVIS_ITS ---
Intake Vital Signs 03/26/23 15:12 Height 5 ft 7.5 in Weight 222 lb 10.67 oz BMI 34.4 BP 134/80 Blood Pressure Location Lt brachial Position Sitting Pulse 65 Intake Visit Reasons: [place] Screening Intake Note: Timur presents in the office as a colonoscopy screening. CC: No concerns today. Allergies NSAIDS (Non-Steroidal Anti-Inflamma [NSAIDS (NON-STEROIDAL ANTI-INFLAMMA] Allergy (Severe, Verified 03/26/23 15:14) ANGIOEDEMA aspirin Allergy (Unknown, Verified 03/26/23 15:14) swollen face ibuprofen Allergy (Unknown, Verified 03/26/23 15:14) swollen face shellfish derived Allergy (Unknown, Verified 03/26/23 15:14) rash HPI [place] Screening HPI Details 52 year old? male with past medical hist ory of hyperparathyroidism, obesity, hypercholesteremia, CKD is here today for pre colonoscopy screening.? Patient was sent to us by his PCP.? This is his first colonoscopy screening.? Patient denies any gastrointestinal symptoms in the past or at present.? Denies any personal or family history of gastrointestinal disease, colon polyps, or cancer.? Denies history of difficulty with sedation or anesthesia in the past.? Negative for history of sleep apnea.? Denies any history of cardiac, renal, pulmonary, or hepatic disease.?? No history of infectious? diseases like hepatitis A, B, C, HIV or tuberculosis.? Patient is not on any anticoagulation therapy. [facility] Medical History Allergic rhinitis Obesity (BMI 30-39.9) Vitamin D deficiency Pure hypercholesterolemia Chronic kidney disease, stage III (moderate) Surgical History History of surgery Family History Father No problems noted. Mother No problems noted. Sister No problems noted. Son No problems noted. Other FH: mental illness Substance abuse Social History Housing: House Alcohol intake: current Alcohol intake frequency: a few times a week Patient Tobacco Use Status: Current someday Tobacco user Years Smoked: pt states rarely e-Cigarette/Vaping Use: Never Used service: No Current occupational status: employed Cognitive needs: No Hearing needs: No Vision needs: No Review of Systems Const Denies weight gain and Denies weight loss ENT Reports no additional complaints, Denies dysphagia and Denies odynophagia Card Reports no additional complaints Resp Reports no additional complaints GI Denies abdominal pain, Denies belching, Denies melena, Denies bloating, Denies change in bowel habits, Denies dysphagia, Denies excessive flatus, Denies dyspepsia, Denies heartburn, Denies diarrhea, Denies loose stools, Denies nausea, Denies odynophagia and Denies vomiting Reports no additional complaints Musc Reports no additional complaints Neuro Reports no additional complaints Psych Reports no additional complaints Endo Reports no additional complaints Physical Exam Vital Signs: Last Vital Signs Pulse 65 03/26/23 15:12 BP 134/80 03/26/23 15:12 BMI result Body Mass Index 34.4 Const General: healthy appearing, no acute distress and well developed Nutritional Appearance: obese Orientation/consciousness: patient oriented x3 HEENT Head: Yes normal to inspection, Yes normocephalic and Yes atraumatic Face and sinus: Yes normal facial exam Mouth: Normal oral and palatal mucosa present Throat: Yes posterior oropharynx normal, Yes tonsils normal and Yes uvula midline Eyes General: appearance normal, both eyes and all related structures Neck Neck: Yes normal visual inspection, Yes full ROM and Yes trachea midline Thyroid: Thyroid normal Resp Effort & Inspection: normal respiratory effort, able to speak in complete sentences, no tracheal deviation and symmetric chest movement Auscultation: clear to auscultation bilaterally Cardio Rate: regular rate Heart sounds: S1 normal heart sound present and S2 normal heart sound present GI Inspection: Yes normal to inspection, No distended and Yes obesity Palpation (GI): Soft to palpation, not firm, nontender and No hepatosplenomegaly present Auscultation: normal bowel sounds General: Yes no CVA tenderness Back/Spine/Pelvis Back: no CVA tenderness Skin General skin exam: elasticity normal, turgor normal and dry skin Neuro General: patient oriented x3 Psych Appearance: grossly normal Mental Status: mental status grossly normal Speech and movement: Normal speech and movement present Assessment & Plan Assessment & Plan (1) Screen for colon cancer: Code(s): Z12.11 - Encounter for screening for malignant neoplasm of colon Plan: Patient denies any GI, cardiac or respiratory symptoms.? Denies any issues with anesthesia in the past.? Denies any history of sleep apnea.? No history infectious diseases in the past or present.? Not on any anticoagulation thera py.? No family or personal history of colon cancer or polyps.? Patient denies melena, hematochezia, unintentional weight loss or ribbon like stools.? Discussed at length the pre-procedure,? prep, diet & medications as well as what to expect prior, during and after the procedure.?? Stressed the importance of good bowel prep. ?Recommended the use of Vaseline or Calmoseptine OTC & baby wipes with bowel movements to promote comfort.? ?Patient verbalizes understanding and agrees to plan of care.? She was given the opportunity to ask questions and all questions answered.? We will see her after the procedure.? Medications: New bisacodyl (Dulcolax (bisacodyl)) take 2 tabs at noon the day before your colonoscopy 20 mg (4 x 5 mg) PO ONCE 1 day 4 tabs 0RF Z12.11 - Encounter for screening for malignant neoplasm of colon polyethylene glycol 3350 (Miralax) As directed by gastroenterology department at [facility] 238 grams PO ONCE 238 grams 0RF Z12.11 - Encounter for screening for malignant neoplasm of colon Coding Level of Care Code New Pt Level 3 (28255) Diagnoses Screen for colon cancer Z12.11 Time Spent (min) 40 Comment 30 minutes spent with patient and additional 10 minutes spent reviewing his records.
[2023-03-26 15:12] VITALS: BP 134/80; PULSE 65; BMI 34.4
== END 2023-03-26 15:55 | disposition home or self-care (01) ==
PROVIDERS: PCP Internal Medicine; Visit Provider Nurse Practitioner Family
DX: Z12.11 Encounter for screening for malignant neoplasm of colon (principal); Z01.818 Encounter for other preprocedural examination
CPT/HCPCS: 99203

== ENCOUNTER → 2023-03-26 15:00 | Outpatient (BNVA) | payer OTHER, SELFPAY | PROVIDERS: PCP Internal Medicine; Visit Provider Nurse Practitioner Family ==

== ENCOUNTER 2023-07-11 07:56 | Outpatient (REF) | payer OTHER, SELFPAY ==
[2023-07-11 08:19] LABS: MANUAL DIFF FLAG NO
[2023-07-11 09:15] LABS: Appearance Urine Clear; Color Urine Yellow; Glucose Urine UA Negative (Negative); Leukocyte Esterase Urine Negative (Negative); Nitrite Urine Negative (Negative); PH 5.5 (5.0-9.0); Urine Blood Negative (Negative); Urine Ketones Negative (Negative); Urine Protein Negative (Neg-Trace)
[2023-07-11 09:18] LABS: Basophils Percent Auto 0.2 % (0-2); Eosinophils Absolute Auto 0.2 X10*3/uL (0.0-0.4); Eosinophils Percent Auto 3.3 % (0-4); Hematocrit 45.9 % (42.0-52.0); Hemoglobin 15.4 g/dl (14.0-18.0); Imm Gran Abs Auto 0.03 X10*3/uL (0.00-0.03); Imm Gran Pct Auto 0.5 % (0.0-0.4); Lymphocytes Absolute Auto 2.3 X10*3/uL (1.2-4.9); Lymphocytes Percent Auto 38.2 % (20-40); Mean Corpuscular HGB Conc 33.6 g/dl (31.0-36.0); Mean Corpuscular Hemoglobin 30.5 pg (27.0-33.0); Mean Corpuscular Volume 90.9 fL (80.0-98.0); Mean Platelet Volume 9.8 fL (9.4-12.4); Monocytes Absolute Auto 0.4 X10*3/uL (0.1-1.2); Monocytes Percent Auto 5.8 % (2-11); Neutrophils Absolute Auto 3.2 x10*3/uL (2.0-8.3); Platelet Count 262 X10*3/uL (160-400); Red Blood Count 5.05 X10*6/uL (4.60-5.80); Red Cell Distribution Width 13.5 % (11.0-16.0); White Blood Count 6.1 X10*3/uL (4.8-10.8)
[2023-07-11 10:36] LABS: Alanine Aminotransferase 35 U/L (0-40); Albumin Level 4.3 g/dL (3.5-5.0); Alkaline Phosphatase 77 U/L (39-117); Anion Gap 15 (12-20); Aspartate Amino Transferase 19 U/L (5-37); Bilirubin Total 0.4 mg/dL (0.0-1.0); Blood Urea Nitrogen 22 mg/dL (9-16); Calcium 9.3 mg/dL (8.4-10.2); Carbon Dioxide 25 mmol/L (22-29); Chloride 106 mmol/L (96-108); Cholesterol 261 mg/dL (<200); Estimated Glomerular Filt Rate 47; Glucose Fasting 93 mg/dL (60-99); HDL Cholesterol 39 mg/dL (>40); LDL Cholesterol Calculated 170 mg/dL (<100); Potassium 4.5 mmol/L (3.3-5.1); Sodium 141 mmol/L (135-145); Total Protein 7.6 g/dL (6.5-8.0); Triglycerides 261 mg/dL (<150)
[2023-07-11 10:38] LABS: TSH reflex Free T4 2.97 uIU/mL (0.32-4.0); Vitamin D 25-OH Total 18.3 ng/mL (>30)
[2023-07-18 10:04] LABS: Testosterone, Free 46.4 pg/mL (35.0-155.0); Testosterone, Total 218 ng/dL (250-1100)
== END 2023-07-11 07:57 | disposition home or self-care (01) ==
LOC: HO.LAB 07:56
PROVIDERS: PCP Internal Medicine; Visit Provider Internal Medicine
DX: N18.30 Chronic kidney disease, stage 3 unspecified (principal); R30.0 Dysuria; E55.9 Vitamin D deficiency, unspecified; R79.89 Other specified abnormal findings of blood chemistry; N52.9 Male erectile dysfunction, unspecified; E78.00 Pure hypercholesterolemia, unspecified
CPT/HCPCS: 36415; 80053; 80061; 81003; 82306; 84402; 84403; 84443; 85025

== ENCOUNTER 2023-07-30 08:52 | Day surgery (SDC) | payer OTHER, SELFPAY ==
[2023-07-28 12:06] VITALS: BMI 34.4
--- NOTE | 2023-07-29 10:40 | HO.ANESPROP2 ---
Documented by User: Mariajose Hernandez NP 07/29/23 10:41 HPI - Anesthesia Eval Consult details Narrative: 52yo M for Colonoscopy PMFSH Active Problems Active Problems: All Active Problems (Updated 07/28/23 @ 12:09 by Rosemarie Lowry RN) Encounter for screening for malignant neoplasm of colon (Acute) Urinary frequency (Acute) Erectile dysfunction (Acute) Hyperparathyroidism (Acute) Tinnitus of left ear (Acute) Annual physical exam (Acute) Abdominal bloating (Acute) LUQ pain (Acute) Allergic rhinitis (Acute) Obesity (BMI 30-39.9) (Acute) Vitamin D deficiency (Acute) Pure hypercholesterolemia (Acute) Chronic kidney disease, stage III (moderate) (Acute) Past Medical History Medical History Allergic rhinitis Obesity (BMI 30-39.9) Vitamin D deficiency Pure hypercholesterolemia Chronic kidney disease, stage III (moderate) Family History Family History Father No problems noted. Mother No problems noted. Sister No problems noted. Son No problems noted. Other FH: mental illness Substance abuse Surgical History Surgical History History of surgery Social History Social History Housing: House Alcohol intake: current Alcohol intake frequency: 0-2 drinks per day Patient Tobacco Use Status: Current everyday Tobacco user Cigarettes Per Day: 2 Years Smoked: pt states rarely e-Cigarette/Vaping Use: Never Used Substance Use Frequency: Weekly Have you been hit, kicked, punched, or otherwise hurt by someone within the past year? If so, by whom?: No Are you DNR?: No Advance Directives: No Advance Directives Information Provided: Yes Recently lost weight without trying: No Nutrition Risks: No Nutritional Risk service: No Current occupational status: employed Cognitive needs: No Hearing needs: No Vision needs: No Meds Allergies Allergy/AdvReac Type Severity Reaction Status Date / Time NSAIDS (Non-Steroidal Allergy Severe ANGIOEDEMA Verified 03/26/23 15:14 Anti-Inflamma [NSAIDS (NON-STEROIDAL ANTI-INFLAMMA] aspirin Allergy Intermediate swollen Verified 07/28/23 12:03 face shellfish derived Allergy Intermediate rash Verified 07/28/23 12:03 Exam Height,Weight and Vital Signs: Height 5 ft 7.5 in Weight 101.151 kg Pertinent Lab Results Pertinent Lab Results: Laboratory Tests 07/11/23 08:18 WBC 6.1 Hgb 15.4 Hct 45.9 Plt Count 262 Sodium 141 Potassium 4.5 Chloride 106 Carbon Dioxide 25 BUN 22 H Creatinine 1.57 H Assessment and Plan Assessment Anesthesia Assessment: Chart Reviewed Documented by User: Jeana Sequeira MD 07/30/23 10:02 [facility] Past Medical History Medical History Allergic rhinitis Obesity (BMI 30-39.9) Vitamin D deficiency Pure hypercholesterolemia Chronic kidney disease, stage III (moderate) Family History Family History Father No problems noted. Mother No problems noted. Sister No problems noted. Son No problems noted. Other FH: mental illness Substance abuse Family history of problems with anesthesia: No Surgical History Surgical History History of surgery History of Problems with Anesthesia: No Social History Social History Housing: House Alcohol intake: current Alcohol intake frequency: 0-2 drinks per day Patient Tobacco Use Status: Current everyday Tobacco user Cigarettes Per Day: 2 Years Smoked: pt states rarely e-Cigarette/Vaping Use: Never Used Substance Use Frequency: Weekly Have you been hit, kicked, punched, or otherwise hurt by someone within the past year? If so, by whom?: No Are you DNR?: No Advance Directives: No Advance Directives Information Provided: Yes Recently lost weight without trying: No Nutrition Risks: No Nutritional Risk service: No Current occupational status: employed Cognitive needs: No Hearing needs: No Vision needs: No Meds Allergies Allergy/AdvReac Type Severity Reaction Status Date / Time NSAIDS (Non-Steroidal Allergy Severe ANGIOEDEMA Verified 03/26/23 15:14 Anti-Inflamma [NSAIDS (NON-STEROIDAL ANTI-INFLAMMA] aspirin Allergy Intermediate swollen Verified 07/28/23 12:03 face shellfish derived Allergy Intermediate rash Verified 07/28/23 12:03 Exam Airway Mallampati Class: II TM Dist: >3cm Neck ROM: Full Heart: rrr Lungs: cta Assessment and Plan Assessment Anesthesia Assessment: Anesthesia Plan Discussed Final Anesthetic Review Family History of Problems with Anesthesia: No History of Problems with Anesthesia: No NPO: Yes ASA Class: III Final Preanesthetic Review: No Changes in Pt Med Stat, Meds/Allgs Chart Reviewed and Consent Obtained/Reviewed Patient Risk: Low Procedure Risk: Low Anesthetic Plan Anesthetic Plan: MAC: Disposition: Standard PACU
[2023-07-30 09:50] VITALS: BP 143/86; PULSE 96; RESP 18; TEMP 36.7; O2SAT 97; BMI 33.9
[2023-07-30] MEDS: Lactated Ringers 1,000 ML 100 ML IVCONT (09:55)
--- NOTE | 2023-07-30 10:15 | MHC.SHP ---
Pre-Procedural Eval Section A - 24 Hr Update-Section A only Date of Service: 07/30/23 Section B - Complete if H&P > 30 days Chief Complaint: Encounter for screening for malignant neoplasm of Details of Present Illness: mother--CRC in her 80's Relevant Family History (Specify if Yes): Yes Relevant Social History: Tobacco Use Present Medications: see Short Stay Collaborative assessment Medical History: Significant History (hyperparathyroidism, obesity, hypercholesteremia, CKD) History of Previous Operations: Relevant previous surgery/procedure and date(s) Allergies: Allergies Allergy/AdvReac Type Severity Reaction Status Date / Time NSAIDS (Non-Steroidal Allergy Severe ANGIOEDEMA Verified 03/26/23 15:14 Anti-Inflamma [NSAIDS (NON-STEROIDAL ANTI-INFLAMMA] aspirin Allergy Intermediate swollen Verified 07/28/23 12:03 face shellfish derived Allergy Intermediate rash Verified 07/28/23 12:03 Review of Systems Sugical H&P ROS: Negative: Constitution, Cardiovascular, Respiratory, Neurological, Psychiatric, Hem-Onc, Allergic/Immunologic, Gastrointestinal, Genitourinary, Musculoskeletal, Integumentary, Endocrine and Eyes/Ears/Nose/Throat Exam Surgical H&P Exam: Normal: HEENT, Normal: Heart, Normal: Lungs, Normal: Extremities, Normal: Abdomen, Normal: Skin and Normal: Neurological Plan Diagnosis/Plan: Unchanged I have reviewed the history and physical and performed a pertinent physical examination on my patient. No changes have occurred unless specified. Time Spent With Patient Time: Total time managing care of this patient today ____ minutes.
--- NOTE | 2023-07-30 11:21 | P.OP_ITS ---
Operative Note Operative Note Date of Service: 07/30/23 Narrative: Operative Information Procedure Description: Colonoscopy Indication: screening Anesthesia: MAC COLONOSCOPY Instrument: Olympus variable stiffness pediatric scope 190L Colonoscopy Monitoring: Vital signs and clinical assessment, continuous EKG monitoring, Pulse oximetry, Carbon Dioxide monitoring and blood pressure monitoring were done throughout the procedure. Colon withdrawal time was 13 minutes. Procedure: The patient was placed in the left lateral decubitis position and pre-procedure medications were administered. After a digital rectal examination of the ano-rectum, the video colonoscope was inserted into the rectum and advanced through the colon to the cecum/TI. The colonoscope was slowly withdrawn in a retrograde panoramic fashion and the colon mucosa was carefully examined including a retroflexed view of the rectum. Findings and interventions are described below. Procedure Difficulty: easy Findings: Terminal Ileum-normal Cecum:normal Ascending Colon: normal Transverse Colon -normal Descending Colon: 9-10 mm sessile polyp removed with cold snare Sigmoid Colon: mild diverticulosis Rectum: Retroflexion with small internal hemorrhoids, grade I Anorectum - normal Colon preparation: [place] Bowel Preparation Scale Right colon; 2 Transverse colon: 2 Left colon; 1-2 (0 = Unprepared colon segment with mucosa not seen due to solid stool that cannot be cleared. 1 = Portion of mucosa of the colon segment seen, but other areas of the colon segment not well seen due to staining, residual stool and/or opaque liquid. 2 = Minor amount of residual staining, small fragments of stool and/or opaque liquid, but mucosa of colon segment seen well. 3 = Entire mucosa of colon segment seen well with no residual staining, small fragments of stool or opaque liquid) Impression and Post Procedure Diagnosis: polyp internal hemorrhoids diverticular disease Plan: High fiber diet leaflet Avoid straining at stool, epsom salts and sitz bath, anusol supps or cream Repeat Colonoscopy in 5 years due to some areas with fair prep or earlier if clinically indicated Above findings were reviewed with the patient and relevant handouts were provided if indicated.
[2023-07-30 11:24] VITALS: BP 114/71; PULSE 88; RESP 16; TEMP 37.3; O2SAT 95
[2023-07-30 11:39] VITALS: BP 123/79; PULSE 82; RESP 18; TEMP 36.9; O2SAT 96
== END 2023-07-30 12:04 | disposition home or self-care (01) ==
PROVIDERS: PCP Internal Medicine; Visit Provider Internal Medicine Gastroenterology
PROC: 0DJD8ZZ Inspection of Lower Intestinal Tract, Via Natural or Artificial Opening Endoscopic (ICD-10-PCS; CPT 45378; principal; 2023-07-30 11:40)
DX: Z12.11 Encounter for screening for malignant neoplasm of colon (principal); K63.5 Polyp of colon; K57.30 Diverticulosis of large intestine without perforation or abscess without bleeding; K64.0 First degree hemorrhoids; E78.00 Pure hypercholesterolemia, unspecified; N18.30 Chronic kidney disease, stage 3 unspecified; Z79.899 Other long term (current) drug therapy
CPT/HCPCS: 45385; 88305; J2704

== ENCOUNTER → 2023-07-30 08:52 | Outpatient (BNV) | payer OTHER, SELFPAY | PROVIDERS: PCP Internal Medicine; Visit Provider Internal Medicine Gastroenterology | DX: Z12.11 Encounter for screening for malignant neoplasm of colon (principal); D12.4 Benign neoplasm of descending colon; K57.30 Diverticulosis of large intestine without perforation or abscess without bleeding; K64.8 Other hemorrhoids | CPT/HCPCS: 45385 ==

== ENCOUNTER 2023-08-15 08:03 | Outpatient (AMB) | payer OTHER, SELFPAY ==
--- NOTE | 2023-08-15 08:08 | MHC.OFFVIS ---
Intake Vital Signs 08/15/23 08:13 Height 5 ft 7.5 in Weight 220 lb BMI 33.9 BP 115/59 L Blood Pressure Location Lt brachial Position Sitting Pulse 87 Intake Visit Reasons: S/P colo screening; Dr. Morley Intake Note: Patient follow up for Colonoscopy results. Patient denies any GI issues for today. Cook Soup Required: No Accompanied by: Self / Same As Patient Allergies NSAIDS (Non-Steroidal Anti-Inflamma [NSAIDS (NON-STEROIDAL ANTI-INFLAMMA] Allergy (Severe, Verified 08/15/23 08:08) ANGIOEDEMA aspirin Allergy (Intermediate, Verified 08/15/23 08:08) swollen face shellfish derived Allergy (Intermediate, Verified 08/15/23 08:08) rash HPI S/P colo screening; Dr. Morley HPI Details LAST VISIT Screen for colon cancer Patient denies any GI, cardiac or respiratory symptoms.? Denies any issues with anesthesia in the past.? Denies any history of sleep apnea.? No history infectious diseases in the past or present.? Not on any anticoagulation therapy.? No family or personal history of colon cancer or polyps.? Patient denies melena, hematochezia, unintentional weight loss or ribbon like stools.? Discussed at length the pre-procedure,? prep, diet & medications as well as what to expect prior, during and after the procedure.?? Stressed the importance of good bowel prep. ?Recommended the use of Vaseline or Calmoseptine OTC & baby wipes with bowel movements to promote comfort.? ?Patient verbalizes understanding and agrees to plan of care.? She was given the opportunity to ask questions and all questions answered.? We will see her after the procedure.? Plan Medications New bisacodyl (Dulcolax (bisacodyl)) take 2 tabs at noon the day before your colonoscopy 20 mg (4 x 5 mg) PO ONCE 1 day 4 tabs 0RF Z12.11 polyethylene glycol 3350 (Miralax) As directed by gastro[facility]ology department at [facility] 238 grams PO ONCE 238 grams 0RF Z12.11 COLONOSCOPY Findings: Terminal Ileum-normal Cecum:normal Ascending Colon: normal Transverse Colon -normal Descending Colon: 9-10 mm sessile polyp removed with cold snare Sigmoid Colon: mild diverticulosis Rectum: Retroflexion with small internal hemorrhoids, grade I Anorectum - normal Colon preparation: [place] Bowel Preparation Scale Right colon; 2 Transverse colon: 2 Left colon; 1-2 (0 = Unprepared colon segment with mucosa not seen due to solid stool that cannot be cleared. 1 = Portion of mucosa of the colon segment seen, but other areas of the colon segment not well seen due to staining, residual stool and/or opaque liquid. 2 = Minor amount of residual staining, small fragments of stool and/or opaque liquid, but mucosa of colon segment seen well. 3 = Entire mucosa of colon segment seen well with no residual staining, small fragments of stool or opaque liquid) Impression and Post Procedure Diagnosis: polyp internal hemorrhoids diverticular disease Plan: High fiber diet leaflet Avoid straining at stool, epsom salts and sitz bath, anusol supps or cream Repeat Colonoscopy in 5 years due to some areas with fair prep or earlier if clinically indicated PATHOLOGY RESULTS Diagnosis Colon, descending, polypectomy: Hyperplastic mucosal polyp TODAY'S VISIT: Patient is here today for follow-up and to discuss colonoscopy results. Patient denies any ill effects from the prep, anesthesia or procedure itself. One hyperplastic polyp, mild diverticulosis found. Patient had suboptimal prep left colon and will need to repeat colonoscopy in 5 years. Patient reports to be feeling well. Moving his bowels well without any issues. Denies any dyspepsia, dysphagia or odynophagia. Denies any melena, hematochezia, unintentional weight loss or ribbon like stools. Patient reports to be feeling well, denies any GI concerning symptoms [facility] Medical History (Updated 08/15/23 @ 08:29 by Allison Roca [facility]) Diverticulosis Allergic rhinitis Obesity (BMI 30-39.9) Vitamin D deficiency Pure hypercholesterolemia Chronic kidney disease, stage III (moderate) Surgical History Hx of colonoscopy History of surgery Family History Father No problems noted. Mother No problems noted. Sister No problems noted. Son No problems noted. Other FH: mental illness Substance abuse Social History Housing: House Alcohol intake: current Alcohol intake frequency: 0-2 drinks per day Patient Tobacco Use Status: Current everyday Tobacco user Cigarettes Per Day: 2 Years Smoked: pt states rarely e-Cigarette/Vaping Use: Never Used service: No Current occupational status: employed Cognitive needs: No Hearing needs: No Vision needs: No Review of Systems Const Denies weight gain and Denies weight loss ENT Reports no additional complaints, Denies dysphagia and Denies odynophagia Card Reports no additional complaints Resp Reports no additional complaints GI Denies abdominal pain, Denies belching, Denies melena, Denies bloating, Denies change in bowel habits, Denies dysphagia, Denies excessive flatus, Denies dyspepsia, Denies heartburn, Denies diarrhea, Denies loose stools, Denies nausea, Denies odynophagia and Denies vomiting Reports no additional complaints Musc Reports no additional complaints Neuro Reports no additional complaints Psych Reports no additional complaints Endo Reports no additional complaints Physical Exam Vital Signs: Last Vital Signs Pulse 87 08/15/23 08:13 BP 115/59 L 08/15/23 08:13 BMI result Body Mass Index 33.9 Const General: healthy appearing, no acute distress and well developed Nutritional Appearance: obese Orientation/consciousness: patient oriented x3 Resp Effort & Inspection: normal respiratory effort, able to speak in complete sentences, no tracheal deviation and symmetric chest movement Auscultation: clear to auscultation bilaterally Cardio Rate: regular rate GI Inspection: Yes normal to inspection, No distended and Yes obesity Palpation (GI): Soft to palpation, not firm, nontender and No hepatosplenomegaly present Auscultation: normal bowel sounds General: Yes no CVA tenderness Back/Spine/Pelvis Back: no CVA tenderness Skin General skin exam: elasticity normal, turgor normal and dry skin Neuro General: patient oriented x3 Psych Appearance: grossly normal Mental Status: mental status grossly normal Assessment & Plan Assessment & Plan (1) Diverticulosis: Code(s): K57.90 - Diverticulosis of intestine, part unspecified, without perforation or abscess without bleeding (2) Status post colonoscopy: Code(s): Z98.890 - Other specified postprocedural states Plan Discussed with patient high-fiber diet. Patient may take probiotics daily. Hyperplastic polyp, however due to fair prep patient will return for colorectal screening in 5 years, sooner if clinically necessary. Patient will follow-up in our office on as needed basis. He is agreeable to this plan and verbalizes understanding of instructions. He was given the opportunity to ask questions and all questions answered. Thank you for allowing me to participate in his care Coding Level of Care Code Est Pt Level 3 (74829) Diagnoses Diverticulosis K57.90 Status post colonoscopy Z98.890 Time Spent (min) 25 Comment 15 minutes spent with patient and additional 10 minutes spent reviewing his records
[2023-08-15 08:13] VITALS: BP 115/59; PULSE 87; BMI 33.9
== END 2023-08-15 09:18 | disposition home or self-care (01) ==
PROVIDERS: PCP Internal Medicine; Visit Provider Nurse Practitioner Family
DX: K57.90 Diverticulosis of intestine, part unspecified, without perforation or abscess without bleeding (principal); Z98.890 Other specified postprocedural states
CPT/HCPCS: 99213

== ENCOUNTER → 2023-08-15 08:03 | Outpatient (BNVA) | payer OTHER, SELFPAY | PROVIDERS: PCP Internal Medicine; Visit Provider Nurse Practitioner Family ==

== ENCOUNTER 2023-09-04 07:56 | Outpatient (REF) | payer OTHER, SELFPAY ==
[2023-09-04 09:02] LABS: Parathyroid Hormone Intact 220.6 pg/mL (8.7-77.1)
== END 2023-09-04 07:57 | disposition home or self-care (01) ==
LOC: HO.LAB 07:56
PROVIDERS: PCP Internal Medicine; Visit Provider Internal Medicine
DX: E21.3 Hyperparathyroidism, unspecified (principal); N18.30 Chronic kidney disease, stage 3 unspecified
CPT/HCPCS: 36415; 83970

== ENCOUNTER 2023-09-08 16:55 | Outpatient (AMB) | payer OTHER, SELFPAY ==
[2023-09-08 17:03] VITALS: BP 120/78; BMI 34.7
--- NOTE | 2023-09-08 17:03 | A.OFFPC_ITS ---
Vital Signs 09/08/23 17:03 Height 5 ft 7.5 in Weight 225 lb BMI 34.7 BP 120/78 Blood Pressure Location Lt brachial Position Sitting Intake Visit Reasons: hyperlipidemia, CKD, allergic rhinitis Intake Note: Patient here for a follow up Hyperlipidemia, CKD, Allergic rhinitis, noise/buzzing on left ear [employer] Required: No Accompanied by: Self / Same As Patient Allergies NSAIDS (Non-Steroidal Anti-Inflamma [NSAIDS (NON-STEROIDAL ANTI-INFLAMMA] Allergy (Severe, Verified 10/06/23 04:21) ANGIOEDEMA aspirin Allergy (Intermediate, Verified 10/06/23 04:21) swollen face shellfish derived Allergy (Intermediate, Verified 10/06/23 04:21) rash Medication List - Last Reconciled 10/06/23 by Compa Whiting MD atorvastatin 10 mg PO BEDTIME 90 days cholecalciferol (vitamin D3) 50 mcg PO DAILY 90 days fluticasone propionate 50 mcg/actuation 2 sprays intranasal DAILY PRN 30 days simethicone (Gas Relief (simethicone)) 80 mg PO TID-QID PRN tamsulosin 0.4 mg PO BEDTIME 90 days Tobacco use date assessed: 09/08/23 Dental Screening Dental Screen Date: 09/08/23 Did you have a dental visit in the last 12 months?: Yes Did you have a dental problem in the last 6 months where you did not have access to dental care?: No Was dental information given to patient?: Patient has dentist HPI hyperlipidemia, CKD, allergic rhinitis HPI Details Patient comes in today for his follow up visit States that he feels okay He continues to have a persistent ringing sensation in his left ear (no pain) and would like to see ENT to help get this resolved He denies any headaches or dizziness Denies any chest pains, no SOB No nausea/vomiting, no abdominal pain No change in bowel habits noted Would like to know how he did on his follow up labs done at the end of June 2023 Patient also had his screening colonoscopy done by Dr. Morley last month - was advised to get a repeat colonoscopy in 5 years [facility] Medical History Diverticulosis Allergic rhinitis Obesity (BMI 30-39.9) Vitamin D deficiency Pure hypercholesterolemia Chronic kidney disease, stage III (moderate) Surgical History Hx of colonoscopy History of surgery Family History Father No problems noted. Mother No problems noted. Sister No problems noted. Son No problems noted. Other FH: mental illness Substance abuse Social History Housing: House Alcohol intake: current Alcohol intake frequency: 0-2 drinks per day Patient Tobacco Use Status: Current everyday Tobacco user Tobacco use type: Cigarette Cigarettes Per Day: 2 Years Smoked: pt states rarely e-Cigarette/Vaping Use: Never Used Second Hand Smoke Exposure: No service: No Current occupational status: employed Current occupational exposures/hazards: No Cognitive needs: No Hearing needs: No Vision needs: No Questionnaire PHQ-9 Over the last 2 weeks, how often have you been bothered by any of the following problems? 1. Little interest or pleasure in doing things: not at all 2. Feeling down, depressed, or hopeless: not at all 3. Trouble falling or staying asleep, or sleeping too much: not at all 4. Feeling tired or having little energy: not at all 5. Poor appetite or overeating: not at all 6. Feeling bad about yourself - or that you are a failure or have let yourself or your family down: not at all 7. Trouble concentrating on things, such as reading the newspaper or watching television: not at all 8. Moving or speaking so slowly that other people could have noticed. Or the opposite - being so fidgety or restless that you have been moving around a lot more than usual: not at all 9. Thoughts that you would be better off or of hurting yourself in some way: not at all Total score: 0 Depression Screening Interpretation: Negative Depression Screening Done: Yes 72987 - PHQ-9 Billing: Yes Source: Developed by Drs. Scottie Conde, Lisette Tillman, Silas Patterson and colleagues, with an educational enoch from [employer]. Thrive Questionnaire Date Thrive assessed: 09/08/23 I am a: Patient What is your living situation today?: I have a steady place to live Within the past 12 months, did the food you bought not last and you didn't have the money to get more?: Never true Within the past 12 months, did you worry whether your food would run out before you got money to buy more?: Never true Do you have trouble paying for medicines?: No Do you have trouble getting transportation to medical appointments?: No Do you have trouble paying your heating and electricity bill?: No Do you have trouble taking care of your child, family member or friend?: No Do you have trouble with day-to-day activities such as bathing, preparing meals, shopping, managing finances, etc.?: No Are you currently unemployed and looking for a job?: No Are you interested in more education?: No Please select the resources that you would like help with: None Currently or been in a relationship where the following occur: no concerns reported THRIVE Score: 0 AUDIT C Alcohol Use Questionnaire (AUDIT-C) 1. How often do you have a drink containing alcohol?: Monthly or less 2. How many drinks containing alcohol do you have on a typical day when you are drinking?: 1 or 2 3. How often do you have six or more drinks on one occasion?: Never Total Score: 1 Score Reviewed/Action Taken: Yes NESSA-7 AMB Questionnaire NESSA-7 Date NESSA - 7 assessed: 09/08/23 Feeling nervous, anxious, or on edge: 1 = Several days Not being able to stop or control worryin = Not at all Worrying too much about different things: 0 = Not at all Trouble relaxin = Not at all Being so restless that it is hard to sit still: 0 = Not at all Becoming easily annoyed or irritable: 0 = Not at all Feeling afraid as if something awful might happen: 0 = Not at all Total NESSA-7 score (0-4 normal; 5-9 mild; 10-14 moderate; 15-21 severe): 1 Source: Developed by Drs. Scottie Conde, Lisette Tillman, Silas Patterson and colleagues, with an educational enoch from [employer]. Review of Systems Const Denies chills, Denies fatigue, Denies fever(s) and Denies headache(s) ENT Denies dysphagia, Denies dizziness, Denies otalgia, Denies headache(s), Denies neck pain, Denies odynophagia, Reports tinnitus (in the left ear - persistent) and Denies sore throat Card Denies chest pain, Denies palpitations and Denies dyspnea Resp Denies cough and Denies dyspnea GI Denies abdominal pain, Denies constipation, Denies dysphagia, Denies heartburn, Denies diarrhea, Denies nausea, Denies odynophagia and Denies vomiting Denies dysuria, Denies nocturia and Denies urinary frequency Musc Denies neck pain Skin/Breast Denies rash Neuro Denies dizziness and Denies headache(s) Endo Denies fatigue and Denies palpitations Physical exam (Primary Care) Vital Signs: Last Vital Signs BP 120/78 09/08/23 17:03 BMI result Body Mass Index 34.7 Tobacco/Smoking Status: Tobacco use Status Tobacco use date assessed 09/08/23 09/08/23 17:10 Patient Tobacco Use Status Current someday Tobacco 09/08/23 17:10 Tobacco use type Cigarette 09/08/23 17:10 e-Cigarette/Vaping Use Never Used 09/08/23 17:10 PHQ-9: PHQ-9 Score PHQ-9: Total score 0 09/08/23 17:48 Depression Screening Interpretation: Negative Thrive Assessment: Date of Thrive Assessment Date Thrive assessed 09/08/23 09/08/23 17:10 Currently or been in a relationship where the following occur: no concerns reported Const General: no acute distress and alert HENMT Ears: TM's normal bilaterally and EAC's normal Throat: Yes posterior oropharynx normal and Yes tonsils normal (no TP congestion) Neck Neck: Yes no lymphadenopathy and Yes supple Thyroid: Thyroid normal Resp Auscultation: clear to auscultation bilaterally, no rales and no wheezes Cardio Rate: regular rate Rhythm: regular rhythm Heart sounds: no murmurs GI Palpation (GI): Soft to palpation and nontender Auscultation: normal bowel sounds General: Yes no CVA tenderness Back/Spine/Pelvis Back: no CVA tenderness Skin Rashes: no rashes Extrem General: Yes no clubbing, cyanosis or edema Results Reviewed Results Reviewed: Laboratory Tests 07/11/23 07/11/23 09/04/23 08:15 08:18 08:05 WBC 6.1 Hgb 15.4 Hct 45.9 Plt Count 262 Sodium 141 Potassium 4.5 Creatinine 1.57 H Estimated GFR 47 Fasting Glucose 93 Calcium 9.3 AST 19 ALT 35 Triglycerides 261 H Cholesterol 261 H LDL Cholesterol, Calc 170 H HDL Cholesterol 39 L 25-OH Vitamin D Total 18.3 L TSH 2.97 Total Testosterone 218 L Fr Testosterone Dialys 46.4 PTH Intact 220.6 H Ur Specific [place] 1.020 Urine Protein Negative Urine Glucose (UA) Negative Urine Blood Negative Urine Nitrite Negative Ur Leukocyte Esterase Negative Assessment and Plan Assessment & Plan (1) Pure hypercholesterolemia: Code(s): E78.00 - Pure hypercholesterolemia, unspecified Plan: Results of his labs done a couple of months ago reviewed and discussed with patient - he is advised that his serum cholesterol levels are still elevated and have remained mostly unchanged from previous Reinforced low cholesterol diet; patient now agrees to start taking Rx to help lower his cholesterol levels Will start him on Atorvastatin 10 mg Q HS Will recheck his labs and fasting lipids in 4 months for follow up (2) Chronic kidney disease, stage III (moderate): Comment: [facility] Code(s): N18.30 - Chronic kidney disease, stage 3 unspecified Qualifiers: Chronic kidney disease stage 3 subtype: stage 3b (GFR 30-44) Qualified Code(s): N18.32 - Chronic kidney disease, stage 3b Plan: Stable; will continue to monitor his renal function closely/regularly Renal Bx done in the past only showed (+) tubular injury Follow up with nephrology (Dr. Fung) as scheduled (3) Vitamin D deficiency: Code(s): E55.9 - Vitamin D deficiency, unspecified Plan: Continue Vitamin D3 2000 units QD - advised that his Vitamin D level is still low on his recent labs (4) Hyperparathyroidism: Code(s): E21.3 - Hyperparathyroidism, unspecified Plan: Serum PTH level was significantly elevated when last checked last year in 11/2021 and again more recently in late June 2023 - is likely secondary hyperparathyroidism due to Vitamin D deficiency Will correct Vitamin D level and recheck PTH in a few months for follow up (5) Allergic rhinitis: Code(s): J30.9 - Allergic rhinitis, unspecified Qualifiers: Allergic rhinitis seasonality: unspecified Allergic rhinitis trigger: unspecified Qualified Code(s): J30.9 - Allergic rhinitis, unspecified Plan: Continue Fluticasone 50 mcg nasal spray QD PRN (6) Tinnitus of left ear: Code(s): H93.12 - Tinnitus, left ear Plan: Per request, will refer him to ENT for further evaluation and management (7) Erectile dysfunction: Code(s): N52.9 - Male erectile dysfunction, unspecified Qualifiers: Erectile dysfunction type: unspecified Qualified Code(s): N52.9 - Male erectile dysfunction, unspecified Plan: Continue Sildenafil 50 mg QD PRN (8) Obesity (BMI 30-39.9): Code(s): E66.9 - Obesity, unspecified Plan: Reinforced diet/exercise as tolerated/lose weight Plan Follow up in 4 months Orders: Orders Comprehensive [place]. Panel Fast 4 Months E78.00 - Pure hypercholesterolemia, unspecified Complete Blood Count Auto Diff 4 Months D64.9 - Anemia, unspecified Parathyroid Hormone Intact 4 Months E21.3 - Hyperparathyroidism, unspecified Lipid Panel 4 Months E78.00 - Pure hypercholesterolemia, unspecified TSH reflex Free T4 4 Months E78.00 - Pure hypercholesterolemia, unspecified Vitamin D 25-OH Total 4 Months E55.9 - Vitamin D deficiency, unspecified Referrals Ear/Nose/Throat Referral H93.12 - Tinnitus, left ear Medications: New atorvastatin 10 mg PO BEDTIME 90 tabs 1RF 90 days Coding Level of Care Code Est Pt Level 4 (31638) Diagnoses Pure hypercholesterolemia E78.00 Stage 3b chronic kidney disease N18.32 Chronic kidney disease stage 3 subtype: stage 3b (GFR 30-44) Vitamin D deficiency E55.9 Hyperparathyroidism E21.3 Allergic rhinitis, unspecified seasonality, unspecified trigger J30.9 Allergic rhinitis seasonality: unspecified Allergic rhinitis trigger: unspecified Tinnitus of left ear H93.12 Erectile dysfunction, unspecified erectile dysfunction type N52.9 Erectile dysfunction type: unspecified Obesity (BMI 30-39.9) E66.9
== END 2023-09-08 17:54 | disposition home or self-care (01) ==
PROVIDERS: PCP Internal Medicine; Visit Provider Internal Medicine
DX: E78.00 Pure hypercholesterolemia, unspecified (principal); N18.32 Chronic kidney disease, stage 3b; E55.9 Vitamin D deficiency, unspecified; E21.3 Hyperparathyroidism, unspecified; J30.9 Allergic rhinitis, unspecified; H93.12 Tinnitus, left ear; N52.9 Male erectile dysfunction, unspecified
CPT/HCPCS: 99214

== ENCOUNTER 2023-12-25 12:29 | Outpatient (REF) | payer OTHER, SELFPAY ==
[2023-12-25 12:40] LABS: MANUAL DIFF FLAG NO
[2023-12-25 13:27] LABS: Basophils Percent Auto 0.2 % (0-2); Eosinophils Absolute Auto 0.1 X10*3/uL (0.0-0.4); Eosinophils Percent Auto 2.2 % (0-4); Hematocrit 47.6 % (42.0-52.0); Hemoglobin 15.6 g/dl (14.0-18.0); Imm Gran Abs Auto 0.02 X10*3/uL (0.00-0.03); Imm Gran Pct Auto 0.3 % (0.0-0.4); Lymphocytes Absolute Auto 2.2 X10*3/uL (1.2-4.9); Lymphocytes Percent Auto 33.9 % (20-40); Mean Corpuscular HGB Conc 32.8 g/dl (31.0-36.0); Mean Corpuscular Hemoglobin 29.7 pg (27.0-33.0); Mean Corpuscular Volume 90.7 fL (80.0-98.0); Mean Platelet Volume 9.7 fL (9.4-12.4); Monocytes Absolute Auto 0.4 X10*3/uL (0.1-1.2); Monocytes Percent Auto 6.9 % (2-11); Neutrophils Absolute Auto 3.6 x10*3/uL (2.0-8.3); Neutrophils Percent Auto 56.5 % (45-73); Platelet Count 246 X10*3/uL (160-400); Red Blood Count 5.25 X10*6/uL (4.60-5.80); Red Cell Distribution Width 13.5 % (11.0-16.0); White Blood Count 6.4 X10*3/uL (4.8-10.8)
[2023-12-25 14:34] LABS: Parathyroid Hormone Intact 278.2 pg/mL (8.7-77.1)
[2023-12-25 14:47] LABS: Alanine Aminotransferase 49 U/L (0-40); Albumin Level 4.6 g/dL (3.5-5.0); Alkaline Phosphatase 77 U/L (39-117); Anion Gap 14 (12-20); Aspartate Amino Transferase 25 U/L (5-37); Bilirubin Total 0.4 mg/dL (0.0-1.0); Blood Urea Nitrogen 19 mg/dL (9-16); Calcium 9.3 mg/dL (8.4-10.2); Carbon Dioxide 26 mmol/L (22-29); Chloride 105 mmol/L (96-108); Cholesterol 283 mg/dL (<200); Estimated Glomerular Filt Rate 48; Glucose Fasting 90 mg/dL (60-99); HDL Cholesterol 44 mg/dL (>40); LDL Cholesterol Calculated 192 mg/dL (<100); Potassium 4.9 mmol/L (3.3-5.1); Sodium 140 mmol/L (135-145); Total Protein 7.9 g/dL (6.5-8.0); Triglycerides 237 mg/dL (<150)
[2023-12-25 14:55] LABS: TSH reflex Free T4 1.96 uIU/mL (0.32-4.0); Vitamin D 25-OH Total 28.8 ng/mL (>30)
== END 2023-12-25 12:30 | disposition home or self-care (01) ==
LOC: HO.LAB 12:29
PROVIDERS: PCP Internal Medicine; Visit Provider Internal Medicine
DX: E78.00 Pure hypercholesterolemia, unspecified (principal); D64.9 Anemia, unspecified; E21.3 Hyperparathyroidism, unspecified; E55.9 Vitamin D deficiency, unspecified
CPT/HCPCS: 36415; 80053; 80061; 82306; 83970; 84443; 85025

== ENCOUNTER 2024-04-20 14:17 | Outpatient (AMB) | payer OTHER, SELFPAY ==
--- NOTE | 2024-04-20 14:17 | MHC.PC.OV ---
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 Accompanied by: Self / Same As Patient Allergies NSAIDS (Non-Steroidal Anti-Inflamma [NSAIDS (NON-STEROIDAL ANTI-INFLAMMA] Allergy (Severe, Verified 04/20/24 14:49) ANGIOEDEMA aspirin Allergy (Intermediate, Verified 04/20/24 14:49) swollen face shellfish derived Allergy (Intermediate, Verified 04/20/24 14:49) rash Medication List - Last Reconciled 04/20/24 by Compa Whiting MD atorvastatin 10 mg PO BEDTIME 90 days cholecalciferol (vitamin D3) 50 mcg PO DAILY 90 days fluticasone propionate 50 mcg/actuation 2 sprays intranasal DAILY PRN 30 days simethicone (Gas Relief (simethicone)) 80 mg PO TID-QID PRN tamsulosin 0.4 mg PO BEDTIME 90 days Tobacco use date assessed: 04/20/24 Dental Screening Dental Screen Date: 04/20/24 Did you have a dental visit in the last 12 months?: Yes Did you have a dental problem in the last 6 months where you did not have access to dental care?: No Was dental information given to patient?: Patient has dentist HPI 3mth f/u cholesterol HPI Details Patient comes in today for his follow-up visit States that he feels okay He denies any headaches or dizziness Denies any chest pains, no shortness of breath No nausea/vomiting, no abdominal pain No change in bowel habits noted He has no follow-up labs done recently as he had to reschedule his last appointment States that he did get his blood test done back in December 2023 and he would like to know how those came out [facility] Medical History Diverticulosis Allergic rhinitis Obesity (BMI 30-39.9) Vitamin D deficiency Pure hypercholesterolemia Chronic kidney disease, stage III (moderate) Surgical History Hx of colonoscopy History of surgery Family History Father No problems noted. Mother No problems noted. Sister No problems noted. Son No problems noted. Other FH: mental illness Substance abuse Social History Housing: House Alcohol intake: current Alcohol intake frequency: 0-2 drinks per day Patient Tobacco Use Status: Current everyday Tobacco user Tobacco use type: Cigarette Cigarettes Per Day: 2 Years Smoked: pt states rarely e-Cigarette/Vaping Use: Never Used Second Hand Smoke Exposure: No service: No Current occupational status: employed Current occupational exposures/hazards: No Cognitive needs: No Hearing needs: No Vision needs: No Questionnaire PHQ-9 Over the last 2 weeks, how often have you been bothered by any of the following problems? 1. Little interest or pleasure in doing things: not at all 2. Feeling down, depressed, or hopeless: not at all 3. Trouble falling or staying asleep, or sleeping too much: not at all 4. Feeling tired or having little energy: not at all 5. Poor appetite or overeating: not at all 6. Feeling bad about yourself - or that you are a failure or have let yourself or your family down: not at all 7. Trouble concentrating on things, such as reading the newspaper or watching television: not at all 8. Moving or speaking so slowly that other people could have noticed. Or the opposite - being so fidgety or restless that you have been moving around a lot more than usual: not at all 9. Thoughts that you would be better off or of hurting yourself in some way: not at all Total score: 0 Depression Screening Interpretation: Negative Depression Screening Done: Yes 23610 - PHQ-9 Billing: Yes Source: Developed by Drs. Scottie Conde, Lisette Tillman, Silas Patterson and colleagues, with an educational enoch from [email or web address]. Thrive Questionnaire Date Thrive assessed: 04/20/24 I am a: Patient What is your living situation today?: I have a steady place to live Within the past 12 months, did the food you bought not last and you didn't have the money to get more?: Never true Within the past 12 months, did you worry whether your food would run out before you got money to buy more?: Never true Do you have trouble paying for medicines?: No Do you have trouble getting transportation to medical appointments?: No Do you have trouble paying your heating and electricity bill?: No Do you have trouble taking care of your child, family member or friend?: No Do you have trouble with day-to-day activities such as bathing, preparing meals, shopping, managing finances, etc.?: No Are you currently unemployed and looking for a job?: No Are you interested in more education?: No Please select the resources that you would like help with: None Currently or been in a relationship where the following occur: No concerns reported THRIVE Score: 0 AUDIT C Alcohol Use Questionnaire (AUDIT-C) 1. How often do you have a drink containing alcohol?: 2-4 times a month 2. How many drinks containing alcohol do you have on a typical day when you are drinking?: 3 or 4 3. How often do you have six or more drinks on one occasion?: Weekly Total Score: 6 Score Reviewed/Action Taken: Yes NESSA-7 AMB Questionnaire NESSA-7 Date NESSA - 7 assessed: 04/20/24 Feeling nervous, anxious, or on edge: 1 = Several days Not being able to stop or control worryin = Not at all Worrying too much about different things: 0 = Not at all Trouble relaxin = Not at all Being so restless that it is hard to sit still: 0 = Not at all Becoming easily annoyed or irritable: 0 = Not at all Feeling afraid as if something awful might happen: 0 = Not at all Total NESSA-7 score (0-4 normal; 5-9 mild; 10-14 moderate; 15-21 severe): 1 Source: Developed by Drs. Scottie Conde, Lisette Tillman, Silas Patterson and colleagues, with an educational enoch from [email or web address]. Review of Systems Const Denies chills, Denies fatigue, Denies fever(s) and Denies headache(s) ENT Denies dysphagia, Denies dizziness, Denies otalgia, Denies headache(s), Denies neck pain, Denies odynophagia, Reports tinnitus (in the left ear - persistent) and Denies sore throat Card Denies chest pain, Denies palpitations and Denies dyspnea Resp Denies cough and Denies dyspnea GI Denies abdominal pain, Denies constipation, Denies dysphagia, Denies heartburn, Denies diarrhea, Denies nausea, Denies odynophagia and Denies vomiting Denies dysuria, Denies nocturia and Denies urinary frequency Musc Denies neck pain Skin/Breast Denies rash Neuro Denies dizziness and Denies headache(s) Endo Denies fatigue and Denies palpitations Physical exam (Primary Care) Vital Signs: Last Vital Signs Pulse 72 04/20/24 14:18 BP 110/84 04/20/24 14:18 Pulse Ox 94 04/20/24 14:18 Oxygen Delivery Method Room Air 04/20/24 14:18 BMI result Body Mass Index 33.5 Tobacco/Smoking Status: Tobacco use Status Tobacco use date assessed 04/20/24 04/20/24 14:24 Patient Tobacco Use Status Current everyday Tobacco 04/20/24 14:24 Tobacco use type Cigarette 04/20/24 14:24 e-Cigarette/Vaping Use Never Used 04/20/24 14:24 PHQ-9: PHQ-9 Score PHQ-9: Total score 0 04/20/24 14:54 Depression Screening Interpretation: Negative Thrive Assessment: Date of Thrive Assessment Date Thrive assessed 04/20/24 04/20/24 14:24 Currently or been in a relationship where the following occur: No concerns reported Const General: no acute distress and alert HENMT Ears: TM's normal bilaterally and EAC's normal Throat: Yes posterior oropharynx normal and Yes tonsils normal (no TP congestion) Neck Neck: Yes no lymphadenopathy and Yes supple Thyroid: Thyroid normal Resp Auscultation: clear to auscultation bilaterally, no rales and no wheezes Cardio Rate: regular rate Rhythm: regular rhythm Heart sounds: no murmurs GI Palpation (GI): Soft to palpation and nontender Auscultation: normal bowel sounds General: Yes no CVA tenderness Back/Spine/Pelvis Back: no CVA tenderness Skin Rashes: no rashes Extrem General: Yes no clubbing, cyanosis or edema Results Reviewed Results Reviewed: Laboratory Tests 12/25/23 12:38 WBC 6.4 Hgb 15.6 Hct 47.6 Plt Count 246 Sodium 140 Potassium 4.9 Creatinine 1.53 H Estimated GFR 48 Fasting Glucose 90 Calcium 9.3 AST 25 ALT 49 H Triglycerides 237 H Cholesterol 283 H LDL Cholesterol, Calc 192 H HDL Cholesterol 44 25-OH Vitamin D Total 28.8 L TSH 1.96 Coding Level of Care Code Est Pt Level 4 (06658) Diagnoses Pure hypercholesterolemia E78.00 Stage 3b chronic kidney disease N18.32 Chronic kidney disease stage 3 subtype: stage 3b (GFR 30-44) Vitamin D deficiency E55.9 Hyperparathyroidism E21.3 Allergic rhinitis, unspecified seasonality, unspecified trigger J30.9 Allergic rhinitis trigger: unspecified Allergic rhinitis seasonality: unspecified Tinnitus of left ear H93.12 Erectile dysfunction, unspecified erectile dysfunction type N52.9 Erectile dysfunction type: unspecified Obesity (BMI 30-39.9) E66.9 Additional Codes PHQ-9 - 79314 - PHQ-9 Billing: Yes ([id number]) Assessment & Plan Assessment & Plan (1) Pure hypercholesterolemia: Code(s): E78.00 - Pure hypercholesterolemia, unspecified Category: Medical Plan: Results of his labs done back in December 2023 reviewed and discussed with patient - have advised patient that his LDL cholesterol level has increased further from previous Reinforced low cholesterol diet Will increase his Atorvastatin now to 20 mg QD - patient recalls that he was taking about 40 mg QD of this in the past Will recheck his labs and fasting lipids in 4 months for follow up and if his numbers still have not improved significantly by then, will increase his Rx further up to 40 mg (2) Chronic kidney disease, stage III (moderate): Comment: [facility] Code(s): N18.30 - Chronic kidney disease, stage 3 unspecified Category: Medical Qualifiers: Chronic kidney disease stage 3 subtype: stage 3b (GFR 30-44) Qualified Code(s): N18.32 - Chronic kidney disease, stage 3b Plan: Stable; will continue to monitor his renal function closely/regularly Renal Bx done in the past only showed (+) tubular injury Follow up with nephrology (Dr. Fung) as scheduled (3) Vitamin D deficiency: Code(s): E55.9 - Vitamin D deficiency, unspecified Category: Medical Plan: Continue Vitamin D3 2000 units QD - Rx refilled (4) Hyperparathyroidism: Code(s): E21.3 - Hyperparathyroidism, unspecified Category: Medical Plan: Serum PTH level was significantly elevated when last checked last year in 11/2021 and again more recently in late June 2023 - is likely secondary hyperparathyroidism due to Vitamin D deficiency Will correct his Vitamin D level first and then recheck PTH level for follow up (5) Allergic rhinitis: Code(s): J30.9 - Allergic rhinitis, unspecified Category: Medical Qualifiers: Allergic rhinitis trigger: unspecified Allergic rhinitis seasonality: unspecified Qualified Code(s): J30.9 - Allergic rhinitis, unspecified Plan: Continue Fluticasone 50 mcg nasal spray QD PRN (6) Tinnitus of left ear: Code(s): H93.12 - Tinnitus, left ear Category: Medical Plan: Follow up with ENT as scheduled (7) Erectile dysfunction: Code(s): N52.9 - Male erectile dysfunction, unspecified Category: Medical Qualifiers: Erectile dysfunction type: unspecified Qualified Code(s): N52.9 - Male erectile dysfunction, unspecified Plan: Continue Sildenafil 50 mg QD PRN (8) Obesity (BMI 30-39.9): Code(s): E66.9 - Obesity, unspecified Category: Medical Plan: Reinforced diet/exercise as tolerated/lose weight Plan Follow up in 4 months Medications: Changed From atorvastatin 10 mg PO BEDTIME 90 days 90 tabs 1RF To atorvastatin 20 mg PO BEDTIME 90 days 90 tabs 1RF Refilled cholecalciferol (vitamin D3) 50 mcg PO DAILY 90 days 90 caps 3RF E55.9 - Vitamin D deficiency, unspecified
[2024-04-20 14:18] VITALS: BP 110/84; PULSE 72; O2SAT 94; BMI 33.5
== END 2024-04-20 14:58 | disposition home or self-care (01) ==
LOC: HO.HMCH 14:17
PROVIDERS: PCP Internal Medicine; Visit Provider Internal Medicine
DX: E21.3 Hyperparathyroidism, unspecified (principal); N18.32 Chronic kidney disease, stage 3b; E66.9 Obesity, unspecified; Z68.33 Body mass index [BMI] 33.0-33.9, adult; E78.00 Pure hypercholesterolemia, unspecified; E55.9 Vitamin D deficiency, unspecified; J30.9 Allergic rhinitis, unspecified; H93.12 Tinnitus, left ear; N52.9 Male erectile dysfunction, unspecified

== ENCOUNTER → 2024-04-20 14:17 | Outpatient (BNVA) | payer OTHER, SELFPAY | PROVIDERS: PCP Internal Medicine; Visit Provider Internal Medicine | DX: E78.00 Pure hypercholesterolemia, unspecified (principal); N18.32 Chronic kidney disease, stage 3b; E55.9 Vitamin D deficiency, unspecified; E21.3 Hyperparathyroidism, unspecified; J30.9 Allergic rhinitis, unspecified; H93.12 Tinnitus, left ear; N52.9 Male erectile dysfunction, unspecified; E66.9 Obesity, unspecified; Z68.33 Body mass index [BMI] 33.0-33.9, adult; Z79.899 Other long term (current) drug therapy | CPT/HCPCS: 96127 ==

== ENCOUNTER 2024-05-26 15:25 | Outpatient (AMB) | payer OTHER, SELFPAY ==
--- NOTE | 2024-05-26 15:28 | HO.NEPHOV ---
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 His renal function has been stable. His BP has been at goal. He does not take NSAID's. He maintains good hydration. His Vitamin D has been low with high PTH and has been taking Vitamin D supplements. He is not a diabetic and is not on ACEI/ARB. He does not use any drugs. His serum creatinine has been stable around 1.5. He denies nausea, vomiting , diarrhea, dizziness, chest pain , SOB, PND , orthopnea, epistaxis, skin rashes or edema. He feels well. [facility] Medical History (Updated 05/26/24 @ 16:05 by Janes Fung MD) Diverticulosis Allergic rhinitis Obesity (BMI 30-39.9) Vitamin D deficiency Pure hypercholesterolemia Chronic kidney disease, stage III (moderate) Surgical History Hx of colonoscopy History of surgery Family History Father No problems noted. Mother No problems noted. Sister No problems noted. Son No problems noted. Other FH: mental illness Substance abuse Social History Housing: House Alcohol intake: current Alcohol intake frequency: 0-2 drinks per day Patient Tobacco Use Status: Current everyday Tobacco user Tobacco use type: Cigarette Cigarettes Per Day: 2 Years Smoked: pt states rarely e-Cigarette/Vaping Use: Never Used Second Hand Smoke Exposure: No service: No Current occupational status: employed Current occupational exposures/hazards: No Cognitive needs: No Hearing needs: No Vision needs: No Review of Systems Const All systems reviewed & are unremarkable except as noted in HPI and below Physical Exam Vital Signs: Last Vital Signs Pulse 72 05/26/24 15:31 BP 110/60 05/26/24 15:31 Pulse Ox 96 05/26/24 15:31 Oxygen Delivery Method Room Air 05/26/24 15:31 BMI result Body Mass Index 34.2 Const General: comfortable and no acute distress Orientation/consciousness: patient oriented x3 HEENT Head: Yes normocephalic Mouth: Normal oral and palatal mucosa present Eyes EOM: EOMs intact bilaterally Neck Neck: Yes supple Resp Auscultation: clear to auscultation bilaterally Cardio Jugular venous distension: no JVD Rate: regular rate GI Palpation (GI): Soft to palpation Auscultation: normal bowel sounds General: Yes no CVA tenderness Back/Spine/Pelvis Back: no CVA tenderness Skin General skin exam: no rashes or lesions noted Neuro General: patient oriented x3 and moves all extremities Extrem General: Yes no pedal edema Results Reviewed Nephrology Results: Hgb 15.6 g/dl (14.0-18.0) 12/25/23 WBC 6.4 X10*3/uL (4.8-10.8) 12/25/23 Plt Count 246 X10*3/uL (160-400) 12/25/23 Sodium 140 mmol/L (135-145) 12/25/23 Potassium 4.9 mmol/L (3.3-5.1) 12/25/23 Chloride 105 mmol/L (96-108) 12/25/23 Carbon Dioxide 26 mmol/L (22-29) 12/25/23 BUN 19 mg/dL (9-16) H 12/25/23 Creatinine 1.53 mg/dL (0.5-1.4) H 12/25/23 Calcium 9.3 mg/dL (8.4-10.2) 12/25/23 PTH Intact 278.2 pg/mL (8.7-77.1) H 12/25/23 Urine Protein Negative mg/dL (Neg-Trace) 07/11/23 Assessment & Plan Assessment & Plan (1) Chronic kidney disease, stage III (moderate): Comment: follows / [facility] Code(s): N18.30 - Chronic kidney disease, stage 3 unspecified Category: Medical Qualifiers: Chronic kidney disease stage 3 subtype: stage 3b (GFR 30-44) Qualified Code(s): N18.32 - Chronic kidney disease, stage 3b (2) Secondary hyperparathyroidism (of renal origin): Code(s): N25.81 - Secondary hyperparathyroidism of renal origin Category: Medical (3) Vitamin D deficiency: Code(s): E55.9 - Vitamin D deficiency, unspecified Category: Medical Plan Timur has CKD 3 from tubular injury in the past . His serum creatinine settled close to 1.5 but has not recovered further, but stable. His BP is at goal. He is not a diabetic or hypertensive. He is on Vitamin D replacement. He may need a Sestamibi scan. He avoids NSAID's and maintain good hydration. I ordered follow up blood work. He needs to loose weight. Further management is pending evolving data Orders: Orders Blood Urea Nitrogen 6 Months N18.32 - Chronic kidney disease, stage 3b Electrolytes 6 Months N18.32 - Chronic kidney disease, stage 3b Calcium 6 Months N18.32 - Chronic kidney disease, stage 3b Parathyroid Hormone Intact 6 Months N18.32 - Chronic kidney disease, stage 3b Vitamin D 25-OH Total 6 Months N18.32 - Chronic kidney disease, stage 3b Creatinine 6 Months N18.32 - Chronic kidney disease, stage 3b Protein Creatinine Ratio, Ur 6 Months N18.32 - Chronic kidney disease, stage 3b Coding Level of Care Code Est Pt Level 4 (59179) Diagnoses Stage 3b chronic kidney disease N18.32 Chronic kidney disease stage 3 subtype: stage 3b (GFR 30-44) Secondary hyperparathyroidism (of renal origin) N25.81 Vitamin D deficiency E55.9
[2024-05-26 15:31] VITALS: BP 110/60; PULSE 72; O2SAT 96; BMI 34.2
== END 2024-05-26 15:57 | disposition home or self-care (01) ==
LOC: HO.HKA 15:25
PROVIDERS: PCP Internal Medicine; Visit Provider Internal Medicine Nephrology
DX: N18.32 Chronic kidney disease, stage 3b (principal); N25.81 Secondary hyperparathyroidism of renal origin; E55.9 Vitamin D deficiency, unspecified
CPT/HCPCS: 99214

== ENCOUNTER → 2024-05-26 15:25 | Outpatient (BNVA) | payer OTHER, SELFPAY | PROVIDERS: PCP Internal Medicine; Visit Provider Internal Medicine Nephrology ==

== ENCOUNTER 2024-08-13 12:12 | Outpatient (REF) | payer OTHER, SELFPAY ==
[2024-08-13 12:28] LABS: MANUAL DIFF FLAG NO
[2024-08-13 12:41] LABS: Basophils Percent Auto 0.2 % (0-2); Eosinophils Absolute Auto 0.1 X10*3/uL (0.0-0.4); Hematocrit 47.5 % (42.0-52.0); Hemoglobin 15.6 g/dl (14.0-18.0); Imm Gran Abs Auto 0.01 X10*3/uL (0.00-0.03); Imm Gran Pct Auto 0.2 % (0.0-0.4); Lymphocytes Absolute Auto 1.6 X10*3/uL (1.2-4.9); Lymphocytes Percent Auto 24.7 % (20-40); Mean Corpuscular HGB Conc 32.8 g/dl (31.0-36.0); Mean Corpuscular Hemoglobin 29.5 pg (27.0-33.0); Mean Corpuscular Volume 89.8 fL (80.0-98.0); Mean Platelet Volume 9.5 fL (9.4-12.4); Monocytes Absolute Auto 0.4 X10*3/uL (0.1-1.2); Neutrophils Absolute Auto 4.4 x10*3/uL (2.0-8.3); Neutrophils Percent Auto 66.9 % (45-73); Platelet Count 250 X10*3/uL (160-400); Red Blood Count 5.29 X10*6/uL (4.60-5.80); Red Cell Distribution Width 13.2 % (11.0-16.0); White Blood Count 6.6 X10*3/uL (4.8-10.8)
[2024-08-13 13:20] LABS: Appearance Urine Clear; Color Urine Yellow; Glucose Urine UA Negative (Negative); Leukocyte Esterase Urine Negative (Negative); Nitrite Urine Negative (Negative); PH 5.5 (5.0-9.0); Specific Gravity - Urine 1.015 (1.005-1.025); Urine Blood Negative (Negative); Urine Ketones Negative (Negative); Urine Protein Negative (Neg-Trace)
[2024-08-13 13:24] LABS: Alanine Aminotransferase 50 U/L (0-40); Albumin Level 4.5 g/dL (3.5-5.0); Alkaline Phosphatase 86 U/L (39-117); Anion Gap 13 (12-20); Aspartate Amino Transferase 25 U/L (5-37); Bilirubin Total 0.4 mg/dL (0.0-1.0); Blood Urea Nitrogen 20 mg/dL (9-16); Calcium 9.4 mg/dL (8.4-10.2); Carbon Dioxide 26 mmol/L (22-29); Chloride 107 mmol/L (96-108); Cholesterol 228 mg/dL (<200); Estimated Glomerular Filt Rate 57; Glucose Fasting 97 mg/dL (60-99); HDL Cholesterol 43 mg/dL (>40); LDL Cholesterol Calculated 146 mg/dL (<100); Potassium 5.2 mmol/L (3.3-5.1); Sodium 141 mmol/L (135-145); Total Protein 8.3 g/dL (6.5-8.0); Triglycerides 198 mg/dL (<150)
[2024-08-13 13:42] LABS: TSH reflex Free T4 1.88 uIU/mL (0.32-4.0); Vitamin D 25-OH Total 19.7 ng/mL (>30)
--- OUTSIDE RECORDS SUMMARY | 2024-08-13 14:27 | XMS_ITS | Clinical Summary ---
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 Role Phone Compa Whiting MD Primary Care Provider [phone]- [phone] Allergies Active Allergy Reactions Criticality Noted Date Comments Aspirin Other (see comments) 09/06/2020 Ibuprofen Other (see comments) 09/06/2020 Shellfish Allergy Other (see comments) 09/07/19 21 Medications loratadine (CLARITIN) 10 MG tablet Take 1 tablet by mouth if needed Active cholecalciferol (VITAMIN D-3) 50 MCG (1999 UT) capsule Take 1 capsule by mouth 1 (one) time each day 10/29/2022 Active tamsulosin (FLOMAX) 0.4 MG 24 hr capsule Take 0.4 mg by mouth every night 10/29/2022 Active simethicone (MYLICON) 80 MG chewable tablet if needed 08/20/2022 Act mookie Active Problems Problem Noted Date Diagnosed Date Stage 3a chronic kidney disease 09/06/2020 Family History Medical History Relation Comments Gout Father Relation Status Comments Father Alive Mother Alive Social History Tobacco Use Types Packs/Day Years Used Date Smoking Tobacco: Some Days Smokeless Tobacco: Never Tobacco Cessation:Ready to Q uit: Not Asked; Counseling Given: Not Answered Alcohol Use Standard Drinks/Week Comments Yes 0 (1 standard drink = 0.6 oz pure alcohol) Alcoholic Drinks/day: Occasional social drink Sex and Gender Information Value Date Recorded Sex Assigned at Not on file Legal Sex Male 5:08 PM EST Gender Identity Not on file Sexual Orientation Not on file Last Filed Vital Signs Vital Sign Reading Time Taken Comments Blood Pressure 140/80 11/27/2022 4:28 PM EDT Pulse 70 11/27/2022 4:28 PM EDT Temperature - - Respiratory Rate - - Oxygen Saturation 99% 11/08/2020 2:45 PM EDT Inhaled Oxygen Concentration - - Weight 101 kg (221 lb 9.6 oz) 11/14/2021 4:24 PM EDT Height 172.7 cm (5' 8 ) 09/08/2019 12:00 PM EDT Body Mass Index 33.69 09/08/2019 12:00 PM EDT Plan of Treatment Health Maintenance Due Date Last Done Comments Pneumococcal Vaccine: Pediat rics (0 to 5 Years) and At-Risk Patients (6 to 64 Years) (1 of 2 - PCV) 1978 Hepatitis B Vaccine (1 of 3 - 19+ 3-dose series) 12/15 Colorectal Cancer Screening: Annual FOBT 2021 Colorectal Cancer Screening: Colonoscopy 2021 Colorectal Cancer Screening: Sigmoidoscopy 2021 Influenza Vaccine (#1) 2024 Insurance Care Teams 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
--- OUTSIDE RECORDS SUMMARY | 2024-08-13 14:27 | XMS_ITS | Encounter Summary ---
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 Name Role Phone Compa Whiting MD Primary Care Provider [phone]- [phone] Encounter Details Date Type Department Care Team (Late st Contact Info) Description 09/06/2020 Orders Only [facility] [address] [place] [address] Provider, MD Lamin [address] [place] [id number] Social History Tobacco Use Types Packs/Day Years Used Date Smoking Tobacco: Some Days Smokeless Tobacco: Current Alcohol Use Standard Drinks/Week Comments Yes 0 (1 standard drink = 0.6 oz pure alcohol) Alcoholic Drinks/day: Occasional social drink Sex and Gender Information Value Date Recorded Sex Assigned at Not on file Legal Sex Male 5:08 PM EST Gender Identity Not on file Sexual Orientation Not on file documented as of this encounter Plan of Treatment Not on file documented as of this encounter Procedures Procedure Name Priority Date/Time Associated Diagnosis Comments EXT RESULT ENTRY Routine 09/06/2020 documented in this encounter Results * EXT RESULT ENTRY (09/06/2020) us Historical Provider LAB BLOOD ORDERABLES Steffi l Result documented in this encounter Visit Diagnoses Not on filedocumented in this encounter Care Teams Mechanical Drawing Teacher Relationship Specialty Start Date End Date Compa Whiting MD [address] [place] [address] PCP - General Internal Medicine 11/08/20 documented as of this encounter
== END 2024-08-13 12:13 | disposition home or self-care (01) ==
LOC: HO.LAB 12:12
PROVIDERS: PCP Internal Medicine; Visit Provider Internal Medicine
DX: D64.9 Anemia, unspecified (principal); E78.00 Pure hypercholesterolemia, unspecified; R30.0 Dysuria; E55.9 Vitamin D deficiency, unspecified
CPT/HCPCS: 36415; 80053; 80061; 81003; 82306; 84443; 85025

== ENCOUNTER 2024-08-18 15:48 | Outpatient (AMB) | payer OTHER, SELFPAY ==
[2024-08-18 15:50] VITALS: BP 116/70; PULSE 66; RESP 16; TEMP 36.3; O2SAT 98; BMI 34.1
--- NOTE | 2024-08-18 15:50 | MHC.PC.OV ---
Vital Signs 08/18/24 15:50 Height 5 ft 7.5 in Weight 221 lb 2 oz BMI 34.1 BP 116/70 Blood Pressure Location Lt brachial Position Sitting Respiration 16 Pulse 66 Pulse Source Pulse Oximeter Temp 97.3 F Temp Source Oral Pulse Oximetry (%) 98 Oxygen Delivery Method Room Air Intake Visit Reasons: hyperlipidemia, CKD Emergency Telecommunications Dispatcher Required: No Accompanied by: Self / Same As Patient Allergies NSAIDS (Non-Steroidal Anti-Inflamma [NSAIDS (NON-STEROIDAL ANTI-INFLAMMA] Allergy (Severe, Verified 08/18/24 16:09) ANGIOEDEMA aspirin Allergy (Intermediate, Verified 08/18/24 16:09) swollen face shellfish derived Allergy (Intermediate, Verified 08/18/24 16:09) rash Medication List - Last Reconciled 08/18/24 by CHRISTIANO Coyne atorvastatin 20 mg PO BEDTIME 90 days cholecalciferol (vitamin D3) 50 mcg PO DAILY 90 days fluticasone propionate 50 mcg/actuation 2 sprays intranasal DAILY PRN 30 days tamsulosin 0.4 mg PO BEDTIME 90 days Tobacco use date assessed: 08/18/24 Dental Screening Dental Screen Date: 08/18/24 Did you have a dental visit in the last 12 months?: Yes Did you have a dental problem in the last 6 months where you did not have access to dental care?: No Was dental information given to patient?: Patient has dentist HPI hyperlipidemia, CKD HPI Details The patient is a 53-year-old male with significant past medical history of obesity, vitamin-D deficiency, pure hypercholesteremia, chronic kidney disease stage 3 The patient is presenting for follow up appointment for chronic conditions Recent labs reviewed with the patient, discussed with the patient about his triglycerides/cholesterol continues to be elevated Patient reports that even though his atorvastatin has been increased to 20 mg, he has been taking 10 mg because he did not want to waste the 10mg tablets Discussed with patient that he could take 2 of the 10 mg equal 20mg and start taking the 20 mg after he completes the 10 mg tablets The patient ALT 49 it was 50 on previous lab. Informed patient that his liver enzyme might be elevated due to his high cholesterol and by decreasing his cholesterol and losing weight could fix his elevated liver enzymes as well He denies shortness or breath, chest pain, heart palpitation, and dizziness [facility] Medical History Diverticulosis Allergic rhinitis Obesity (BMI 30-39.9) Vitamin D deficiency Pure hypercholesterolemia Chronic kidney disease, stage III (moderate) Surgical History Hx of colonoscopy History of surgery Family History Father No problems noted. Mother No problems noted. Sister No problems noted. Son No problems noted. Other FH: mental illness Substance abuse Social History Housing: House Alcohol intake: current Alcohol intake frequency: 0-2 drinks per day Patient Tobacco Use Status: Current everyday Tobacco user Tobacco use type: Cigarette Cigarettes Per Day: 2 Years Smoked: pt states rarely e-Cigarette/Vaping Use: Never Used Second Hand Smoke Exposure: No service: No Current occupational status: employed Current occupational exposures/hazards: No Cognitive needs: No Hearing needs: No Vision needs: Yes Questionnaire PHQ-9 Over the last 2 weeks, how often have you been bothered by any of the following problems? 1. Little interest or pleasure in doing things: not at all 2. Feeling down, depressed, or hopeless: not at all 3. Trouble falling or staying asleep, or sleeping too much: not at all 4. Feeling tired or having little energy: not at all 5. Poor appetite or overeating: not at all 6. Feeling bad about yourself - or that you are a failure or have let yourself or your family down: not at all 7. Trouble concentrating on things, such as reading the newspaper or watching television: not at all 8. Moving or speaking so slowly that other people could have noticed. Or the opposite - being so fidgety or restless that you have been moving around a lot more than usual: not at all 9. Thoughts that you would be better off or of hurting yourself in some way: not at all Total score: 0 Depression Screening Interpretation: Negative Depression Screening Done: Yes 28408 - PHQ-9 Billing: Yes Source: Developed by Drs. Scottie Conde, Lisette Tillman, Silas Patterson and colleagues, with an educational enoch from [employer]. Thrive Questionnaire Date Thrive assessed: 08/18/24 I am a: Patient What is your living situation today?: I have a steady place to live Within the past 12 months, did the food you bought not last and you didn't have the money to get more?: Never true Within the past 12 months, did you worry whether your food would run out before you got money to buy more?: Never true Do you have trouble paying for medicines?: No Do you have trouble getting transportation to medical appointments?: No Do you have trouble paying your heating and electricity bill?: No Do you have trouble taking care of your child, family member or friend?: No Do you have trouble with day-to-day activities such as bathing, preparing meals, shopping, managing finances, etc.?: No Are you currently unemployed and looking for a job?: No Are you interested in more education?: No Please select the resources that you would like help with: None Currently or been in a relationship where the following occur: No concerns reported THRIVE Score: 0 AUDIT C Alcohol Use Questionnaire (AUDIT-C) 1. How often do you have a drink containing alcohol?: 2-4 times a month 2. How many drinks containing alcohol do you have on a typical day when you are drinking?: 3 or 4 3. How often do you have six or more drinks on one occasion?: Weekly Total Score: 6 Score Reviewed/Action Taken: Yes NESSA-7 AMB Questionnaire NESSA-7 Date NESSA - 7 assessed: 08/18/24 Feeling nervous, anxious, or on edge: 0 = Not at all Not being able to stop or control worryin = Not at all Worrying too much about different things: 0 = Not at all Trouble relaxin = Not at all Being so restless that it is hard to sit still: 0 = Not at all Becoming easily annoyed or irritable: 0 = Not at all Feeling afraid as if something awful might happen: 0 = Not at all Total NESSA-7 score (0-4 normal; 5-9 mild; 10-14 moderate; 15-21 severe): 0 Source: Developed by Drs. Scottie Conde, Silas Yost and colleagues, with an educational enoch from [employer]. NESSA-7 Assessment Billing NESSA-7 Assessment Tool: NESSA-7 Assessment 34213 Review of Systems Const Denies body aches, Denies excessive sweating, Denies fatigue, Denies fever(s), Denies headache(s), Denies weakness, Denies weight gain and Denies weight loss Eyes Denies change in vision ENT Denies change in voice, Denies headache(s), Denies hearing loss, Denies nasal congestion, Denies disequilibrium, Denies sinus pressure, Denies throat swelling and Denies tongue swelling Card Denies chest pain, Denies rapid heart rate and Denies irregular heart rhythm Resp Denies cough, Denies hemoptysis and Denies wheezing GI Denies abdominal pain, Denies melena, Denies constipation, Denies diarrhea and Denies vomiting Denies dysuria, Denies urinary frequency and Denies urinary urgency Musc Denies arthralgias, Denies joint swelling, Denies numbness and Denies tingling Neuro Denies behavioral changes, Denies headache(s), Denies memory loss, Denies numbness, Denies tingling, Denies disequilibrium and Denies weakness Psych Denies anxiety, Denies behavioral changes, Denies depression, Denies memory loss and Denies panic attacks Endo Denies excessive sweating and Denies fatigue Saeid/Lymph Denies easy bleeding and Denies easy bruising Aller/Immun Denies throat swelling, Denies tongue swelling and Denies wheezing Physical exam (Primary Care) Vital Signs: Last Vital Signs Temp 97.3 F 08/18/24 15:50 Pulse 66 08/18/24 15:50 Resp 16 08/18/24 15:50 BP 116/70 08/18/24 15:50 Pulse Ox 98 08/18/24 15:50 Oxygen Delivery Method Room Air 08/18/24 15:50 BMI result Body Mass Index 34.1 Tobacco/Smoking Status: Tobacco use Status Tobacco use date assessed 08/18/24 08/18/24 16:02 Patient Tobacco Use Status Current everyday Tobacco 08/18/24 16:02 Tobacco use type Cigarette 08/18/24 16:02 e-Cigarette/Vaping Use Never Used 08/18/24 16:02 PHQ-9: PHQ-9 Score PHQ-9: Total score 0 08/18/24 16:22 Depression Screening Interpretation: Negative Thrive Assessment: Date of Thrive Assessment Date Thrive assessed 08/18/24 08/18/24 16:02 Currently or been in a relationship where the following occur: No concerns reported Const General: no acute distress and alert HENMT Ears: TM's normal bilaterally and EAC's normal Throat: Yes posterior oropharynx normal and Yes tonsils normal (no TP congestion) Neck Neck: Yes no lymphadenopathy and Yes supple Thyroid: Thyroid normal Resp Auscultation: clear to auscultation bilaterally, no rales and no wheezes Cardio Rate: regular rate Rhythm: regular rhythm Heart sounds: no murmurs GI Palpation (GI): Soft to palpation and nontender Auscultation: normal bowel sounds General: Yes no CVA tenderness Back/Spine/Pelvis Back: no CVA tenderness Skin Rashes: no rashes Extrem General: Yes no clubbing, cyanosis or edema Results Reviewed Results Reviewed: Laboratory Tests 08/13/24 08/13/24 12:22 12:27 WBC 6.6 RBC 5.29 Hgb 15.6 Hct 47.5 MCV 89.8 Plt Count 250 Sodium 141 Potassium 5.2 H Chloride 107 Carbon Dioxide 26 BUN 20 H Creatinine 1.33 AST 25 ALT 50 H Triglycerides 198 H Cholesterol 228 H LDL Cholesterol, Calc 146 H HDL Cholesterol 43 25-OH Vitamin D Total 19.7 L TSH 1.88 Urine Color Yellow Urine Appearance Clear Urine pH 5.5 Ur Specific [place] 1.015 Urine Protein Negative Urine Glucose (UA) Negative Urine Ketones Negative Urine Blood Negative Urine Nitrite Negative Ur Leukocyte Esterase Negative Coding Level of Care Code Est Pt Level 4 (43872) Diagnoses Pure hypercholesterolemia E78.00 Stage 3b chronic kidney disease N18.32 Chronic kidney disease stage 3 subtype: stage 3b (GFR 30-44) Vitamin D deficiency E55.9 Hyperparathyroidism E21.3 Obesity (BMI 30-39.9) E66.9 Elevated ALT measurement R74.01 Additional Codes NESSA-7 Assessment Billing - NESSA-7 Assessment Tool: NESSA-7 Assessment 90942 ([id number]) PHQ-9 - 49838 - PHQ-9 Billing: Yes ([id number]) Time Spent (min) 38 Assessment & Plan Assessment & Plan (1) Pure hypercholesterolemia: Code(s): E78.00 - Pure hypercholesterolemia, unspecified Category: Medical Plan: Results of his labs done back in December 2023 reviewed and discussed with patient - have advised patient that his LDL cholesterol level has increased further from previous Reinforced low cholesterol diet Will increase his Atorvastatin now to 20 mg QD - patient recalls that he was taking about 40 mg QD of this in the past Today the patient LDL decreased from previous but still remains elevated-discussed this with the patient and he reports that has he is still taking the 10 mg tablets because he did not want to waste them. Explained to patient that he could take two of the 10 mg to equal 20mg and start the 20 mg ones completing the 10 mg Reinforced low-cholesterol diet/activity as tolerated (2) Chronic kidney disease, stage III (moderate): Comment: follows / [facility] Code(s): N18.30 - Chronic kidney disease, stage 3 unspecified Category: Medical Qualifiers: Chronic kidney disease stage 3 subtype: stage 3b (GFR 30-44) Qualified Code(s): N18.32 - Chronic kidney disease, stage 3b Plan: Stable; will continue to monitor his renal function closely/regularly Renal Bx done in the past only showed (+) tubular injury Follow up with nephrology (Dr. Fung) as scheduled (3) Vitamin D deficiency: Code(s): E55.9 - Vitamin D deficiency, unspecified Category: Medical Plan: vit-d 19.7, reports that he ran out of this medication and has not been taking it Continue Vitamin D3 2000 units QD - Rx refilled (4) Hyperparathyroidism: Code(s): E21.3 - Hyperparathyroidism, unspecified Category: Medical Plan: Serum PTH level was significantly elevated when last checked last year in 11/2021 and again more recently in late June 2023 - is likely secondary hyperparathyroidism due to Vitamin D deficiency Will correct his Vitamin D level first and then recheck PTH level for follow up (5) Obesity (BMI 30-39.9): Code(s): E66.9 - Obesity, unspecified Category: Medical Plan: Reinforced diet/exercise as tolerated/lose weight (6) Elevated ALT measurement: Code(s): R74.01 - Elevation of levels of liver transaminase levels Category: Medical Plan: Refrain from Tylenol containing medications and alcohol The patient ALT 49 it was 50 on previous lab. Informed patient that his liver enzyme might be elevated due to his high cholesterol and by decreasing his cholesterol and losing weight could fix his elevated liver enzymes as well Plan Follow up in 4 months Orders: Orders Comprehensive [place]. Panel Fast 4 Months E55.9 - Vitamin D deficiency, unspecified, E66.9 - Obesity, unspecified, E78.00 - Pure hypercholesterolemia, unspecified, N18.32 - Chronic kidney disease, stage 3b Glucose Fasting 4 Months E55.9 - Vitamin D deficiency, unspecified, E66.9 - Obesity, unspecified, E78.00 - Pure hypercholesterolemia, unspecified, N18.32 - Chronic kidney disease, stage 3b Complete Blood Count Auto Diff 4 Months E55.9 - Vitamin D deficiency, unspecified, E66.9 - Obesity, unspecified, E78.00 - Pure hypercholesterolemia, unspecified, N18.32 - Chronic kidney disease, stage 3b TSH reflex Free T4 4 Months E55.9 - Vitamin D deficiency, unspecified, E66.9 - Obesity, unspecified, E78.00 - Pure hypercholesterolemia, unspecified, N18.32 - Chronic kidney disease, stage 3b UA CC w/rflx Micro + Cult 4 Months E55.9 - Vitamin D deficiency, unspecified, E66.9 - Obesity, unspecified, E78.00 - Pure hypercholesterolemia, unspecified, N18.32 - Chronic kidney disease, stage 3b Lipid Panel 4 Months E55.9 - Vitamin D deficiency, unspecified, E66.9 - Obesity, unspecified, E78.00 - Pure hypercholesterolemia, unspecified, N18.32 - Chronic kidney disease, stage 3b Vitamin D 25-OH Total 4 Months E55.9 - Vitamin D deficiency, unspecified, E66.9 - Obesity, unspecified, E78.00 - Pure hypercholesterolemia, unspecified, N18.32 - Chronic kidney disease, stage 3b Medications: Refilled cholecalciferol (vitamin D3) 50 mcg PO DAILY 90 days 90 caps 3RF E55.9 - Vitamin D deficiency, unspecified
--- OUTSIDE RECORDS SUMMARY | 2024-08-18 19:00 | XMS_ITS | Encounter Summary ---
Author Organization [facility] Address [address] [place] [address] Phone Care Team Providers Care Web Retailer Name Role Phone Compa Whiting MD Primary Care Provider [phone]- [phone] Encounter Details Date Type Department Care Team (Late st Contact Info) Description 09/06/2020 Orders Only [facility] [address] [place] [address] Provider, MD Lamin [address] [place] [id number] Social History Tobacco Use Types Packs/Day [...] on filedocumented in this encounter Care Teams Web Retailer Relationship Specialty Start Date End Date Compa Whiting MD [address] [place] [address] PCP - General Internal Medicine 11/08/20 documented as of this encounter
--- OUTSIDE RECORDS SUMMARY | 2024-08-18 19:00 | XMS_ITS | Clinical Summary ---
Author Organization [facility] Address [address] [place] [address] Phone Care Team Providers Care Boss Dyer Name Role Phone Compa Whiting MD Primary Care Provider [phone]- [phone] Allergies Active Allergy Reactions Criticality Noted Date [...] Influenza Vaccine (#1) 2024 Insurance Care Teams Boss Dyer Relationship Specialty Start Date End Date Compa Whiting MD [address] [place] [address] [address] [place], [place] [id number] PCP - General Internal Medicine 11/08/20
== END 2024-08-18 16:26 | disposition home or self-care (01) ==
PROVIDERS: PCP Internal Medicine
DX: E21.3 Hyperparathyroidism, unspecified (principal); N18.32 Chronic kidney disease, stage 3b; E66.9 Obesity, unspecified; Z68.34 Body mass index [BMI] 34.0-34.9, adult; E78.00 Pure hypercholesterolemia, unspecified; E55.9 Vitamin D deficiency, unspecified; R74.01 Elevation of levels of liver transaminase levels

== ENCOUNTER → 2024-08-18 15:48 | Outpatient (BNVA) | payer OTHER, SELFPAY | PROVIDERS: PCP Internal Medicine | DX: N18.32 Chronic kidney disease, stage 3b (principal); E78.00 Pure hypercholesterolemia, unspecified; E55.9 Vitamin D deficiency, unspecified; E21.3 Hyperparathyroidism, unspecified; E66.9 Obesity, unspecified; Z68.34 Body mass index [BMI] 34.0-34.9, adult; R74.01 Elevation of levels of liver transaminase levels | CPT/HCPCS: 96127 ==

== ENCOUNTER 2024-12-20 07:17 | Outpatient (REF) | payer OTHER, SELFPAY ==
[2024-12-20 08:43] LABS: Parathyroid Hormone Intact 193.6 pg/mL (8.7-77.1)
[2024-12-20 08:52] LABS: Anion Gap 10 (12-20); Blood Urea Nitrogen 15 mg/dL (9-16); Calcium 8.9 mg/dL (8.4-10.2); Carbon Dioxide 26 mmol/L (22-29); Chloride 106 mmol/L (96-108); Estimated Glomerular Filt Rate 49; Potassium 4.3 mmol/L (3.3-5.1); Sodium 138 mmol/L (135-145)
[2024-12-20 10:01] LABS: Protein/Creatinine Ratio, Ur 0.04 (<0.2); Total Protein Urine Random 12 mg/dL (<12)
== END 2024-12-20 07:18 | disposition home or self-care (01) ==
LOC: HO.LAB 07:17
PROVIDERS: Visit Provider Internal Medicine Nephrology
DX: N18.32 Chronic kidney disease, stage 3b (principal)
CPT/HCPCS: 36415; 80051; 82306; 82310; 82565; 82570; 83970; 84156; 84520

== ENCOUNTER 2024-12-24 07:38 | Outpatient (REF) | payer OTHER, SELFPAY ==
--- OUTSIDE RECORDS SUMMARY | 2024-12-24 07:40 | XMS_ITS | Encounter Summary ---
Author Organization [facility] Address [address] [place] [address] Phone Care Team Providers Care Slide Machine Tender Name Role Phone Compa Whiting MD Primary Care Provider [phone]- [phone] Encounter Details Date Type Department Care Team (Late st Contact Info) Description 09/06/2020 Orders Only [facility] [address] [place] [address] Provider, MD Lamin Social History Tobacco Use Types Packs/Day Years [...] on filedocumented in this encounter Care Teams Slide Machine Tender Relationship Specialty Start Date End Date Compa Whiting MD [address] [place] [address] PCP - General Internal Medicine 11/08/20 documented as of this encounter
[2024-12-24 07:49] LABS: MANUAL DIFF FLAG NO
[2024-12-24 08:16] LABS: Hematocrit 44.3 % (42.0-52.0); Hemoglobin 14.6 g/dl (14.0-18.0); Imm Gran Abs Auto 0.01 X10*3/uL (0.00-0.03); Imm Gran Pct Auto 0.2 % (0.0-0.4); Lymphocytes Absolute Auto 2.2 X10*3/uL (1.2-4.9); Mean Corpuscular HGB Conc 33.0 g/dl (31.0-36.0); Mean Corpuscular Hemoglobin 29.4 pg (27.0-33.0); Mean Corpuscular Volume 89.1 fL (80.0-98.0); NRBC Abs Auto 0.000 X10*3/uL (0.0-0.012); NRBC Pct Auto 0.0 /100WBC (0.0-0.2); Platelet Count 257 X10*3/uL (160-400); Red Blood Count 4.97 X10*6/uL (4.60-5.80); White Blood Count 6.5 X10*3/uL (4.8-10.8)
[2024-12-24 08:30] LABS: Appearance Urine Clear; Glucose Urine UA Negative (Negative); PH 5.5 (5.0-9.0); Specific Gravity - Urine 1.020 (1.005-1.025)
[2024-12-24 08:53] LABS: Alanine Aminotransferase 78 U/L (0-40); Albumin Level 4.2 g/dL (3.5-5.0); Alkaline Phosphatase 81 U/L (39-117); Anion Gap 13 (12-20); Aspartate Amino Transferase 34 U/L (5-37); Blood Urea Nitrogen 24 mg/dL (9-16); Calcium 8.6 mg/dL (8.4-10.2); Carbon Dioxide 24 mmol/L (22-29); Chloride 108 mmol/L (96-108); Cholesterol 242 mg/dL (<200); Estimated Glomerular Filt Rate 50; HDL Cholesterol 39 mg/dL (>40); Potassium 4.6 mmol/L (3.3-5.1); Sodium 140 mmol/L (135-145); Total Protein 6.9 g/dL (6.5-8.0); Triglycerides 266 mg/dL (<150)
== END 2024-12-24 07:39 | disposition home or self-care (01) ==
LOC: HO.LAB 07:38
PROVIDERS: PCP Internal Medicine
DX: N18.32 Chronic kidney disease, stage 3b (principal); E66.9 Obesity, unspecified; E55.9 Vitamin D deficiency, unspecified; E78.00 Pure hypercholesterolemia, unspecified; D64.9 Anemia, unspecified
CPT/HCPCS: 36415; 80053; 80061; 81003; 82306; 84443; 85025

== ENCOUNTER 2024-12-28 14:14 | Outpatient (AMB) | payer OTHER, SELFPAY ==
[2024-12-28 14:22] VITALS: BP 110/82; PULSE 74; O2SAT 97; BMI 32.6
--- NOTE | 2024-12-28 14:22 | MHC.PC.OV ---
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: No Accompanied by: Self / Same As Patient Allergies NSAIDS (Non-Steroidal Anti-Inflamma (NSAIDS (NON-STEROIDAL ANTI-INFLAMMA) Allergy (Severe, Verified 12/28/24 14:47) ANGIOEDEMA aspirin Allergy (Intermediate, Verified 12/28/24 14:47) swollen face shellfish derived Allergy (Intermediate, Verified 12/28/24 14:47) rash Medication List - Last Reconciled 12/28/24 by Compa Whiting MD atorvastatin 20 mg PO BEDTIME 90 days cholecalciferol (vitamin D3) 50 mcg PO DAILY 90 days fluticasone propionate 50 mcg/actuation 2 sprays intranasal DAILY PRN 30 days tamsulosin 0.4 mg PO BEDTIME 90 days Tobacco use date assessed: 12/28/24 Dental Screening Dental Screen Date: 12/28/24 Did you have a dental visit in the last 12 months?: Yes Did you have a dental problem in the last 6 months where you did not have access to dental care?: No Was dental information given to patient?: Patient has dentist HPI HLD/CKD HPI Details Patient comes in today for his follow-up visit States that he feels okay He denies any headaches or dizziness Denies any chest pains, no shortness of breath No nausea/vomiting, no abdominal pain No change in bowel habits noted Needs a couple of his Rx refilled today He had his follow up labs done a few days ago - to discuss his results [facility] Medical History Diverticulosis Allergic rhinitis Obesity (BMI 30-39.9) Vitamin D deficiency Pure hypercholesterolemia Chronic kidney disease, stage III (moderate) Surgical History Hx of colonoscopy History of surgery Family History Father No problems noted. Mother No problems noted. Sister No problems noted. Son No problems noted. Other FH: mental illness Substance abuse Social History Housing: House Alcohol intake: current Alcohol intake frequency: 0-2 drinks per day Patient Tobacco Use Status: Current everyday Tobacco user Tobacco use type: Cigarette Cigarettes Per Day: 2 Years Smoked: pt states rarely e-Cigarette/Vaping Use: Never Used Second Hand Smoke Exposure: No service: No Current occupational status: employed Current occupational exposures/hazards: No Cognitive needs: No Hearing needs: No Vision needs: Yes Questionnaire PHQ-9 Over the last 2 weeks, how often have you been bothered by any of the following problems? 1. Little interest or pleasure in doing things: not at all 2. Feeling down, depressed, or hopeless: not at all 3. Trouble falling or staying asleep, or sleeping too much: not at all 4. Feeling tired or having little energy: not at all 5. Poor appetite or overeating: not at all 6. Feeling bad about yourself - or that you are a failure or have let yourself or your family down: not at all 7. Trouble concentrating on things, such as reading the newspaper or watching television: not at all 8. Moving or speaking so slowly that other people could have noticed. Or the opposite - being so fidgety or restless that you have been moving around a lot more than usual: not at all 9. Thoughts that you would be better off or of hurting yourself in some way: not at all Total score: 0 Depression Screening Interpretation: Negative Depression Screening Done: Yes 03922 - PHQ-9 Billing: Yes Source: Developed by Drs. Scottie Conde, Lisette Tillman, Silas Patterson and colleagues, with an educational enoch from [employer]. Thrive Questionnaire Date Thrive assessed: 12/28/24 I am a: Patient What is your living situation today?: I have a steady place to live Within the past 12 months, did the food you bought not last and you didn't have the money to get more?: I choose not to answer this question Within the past 12 months, did you worry whether your food would run out before you got money to buy more?: I choose not to answer this question Do you have trouble paying for medicines?: No Do you have trouble getting transportation to medical appointments?: No Do you have trouble paying your heating and electricity bill?: No Do you have trouble taking care of your child, family member or friend?: No Do you have trouble with day-to-day activities such as bathing, preparing meals, shopping, managing finances, etc.?: No Are you currently unemployed and looking for a job?: No Are you interested in more education?: No Please select the resources that you would like help with: None Currently or been in a relationship where the following occur: No concerns reported THRIVE Score: 0 AUDIT C Alcohol Use Questionnaire (AUDIT-C) 1. How often do you have a drink containing alcohol?: 2-4 times a month 2. How many drinks containing alcohol do you have on a typical day when you are drinking?: 3 or 4 3. How often do you have six or more drinks on one occasion?: Monthly Total Score: 5 Score Reviewed/Action Taken: Yes NESSA-7 AMB Questionnaire NESSA-7 Date NESSA - 7 assessed: 12/28/24 Feeling nervous, anxious, or on edge: 1 = Several days Not being able to stop or control worryin = Several days Worrying too much about different things: 1 = Several days Trouble relaxin = Not at all Being so restless that it is hard to sit still: 0 = Not at all Becoming easily annoyed or irritable: 1 = Several days Feeling afraid as if something awful might happen: 1 = Several days Total NESSA-7 score (0-4 normal; 5-9 mild; 10-14 moderate; 15-21 severe): 5 Source: Developed by Drs. Scottie Conde, Lisette Tillman, Silas Patterson and colleagues, with an educational enoch from [employer]. Review of Systems Const Denies chills, Denies fatigue, Denies fever(s) and Denies headache(s) ENT Denies dysphagia, Denies dizziness, Denies otalgia, Denies headache(s), Denies neck pain, Denies odynophagia, Reports tinnitus (in the left ear - persistent) and Denies sore throat Card Denies chest pain, Denies palpitations and Denies dyspnea Resp Denies cough and Denies dyspnea GI Denies abdominal pain, Denies constipation, Denies dysphagia, Denies heartburn, Denies diarrhea, Denies nausea, Denies odynophagia and Denies vomiting Denies dysuria, Denies nocturia and Denies urinary frequency Musc Denies neck pain Skin/Breast Denies rash Neuro Denies dizziness and Denies headache(s) Endo Denies fatigue and Denies palpitations Physical exam (Primary Care) Vital Signs: Last Vital Signs Pulse 74 12/28/24 14:22 BP 110/82 12/28/24 14:22 Pulse Ox 97 12/28/24 14:22 Oxygen Delivery Method Room Air 12/28/24 14:22 BMI result Body Mass Index 32.6 Tobacco/Smoking Status: Tobacco use Status Tobacco use date assessed 12/28/24 12/28/24 14:30 Patient Tobacco Use Status Current everyday Tobacco 12/28/24 14:30 Tobacco use type Cigarette 12/28/24 14:30 e-Cigarette/Vaping Use Never Used 12/28/24 14:30 PHQ-9: PHQ-9 Score PHQ-9: Total score 0 12/28/24 14:30 Depression Screening Interpretation: Negative Thrive Assessment: Date of Thrive Assessment Date Thrive assessed 12/28/24 12/28/24 14:30 Currently or been in a relationship where the following occur: No concerns reported Const General: no acute distress and alert HENMT Ears: TM's normal bilaterally and EAC's normal Throat: Yes posterior oropharynx normal and Yes tonsils normal (no TP congestion) Neck Neck: Yes no lymphadenopathy and Yes supple Thyroid: Thyroid normal Resp Auscultation: clear to auscultation bilaterally, no rales and no wheezes Cardio Rate: regular rate Rhythm: regular rhythm Heart sounds: no murmurs GI Palpation (GI): Soft to palpation and nontender Auscultation: normal bowel sounds General: Yes no CVA tenderness Back/Spine/Pelvis Back: no CVA tenderness Skin Rashes: no rashes Extrem General: Yes no clubbing, cyanosis or edema Results Reviewed Results Reviewed: Laboratory Tests 12/20/24 12/24/24 12/24/24 07:24 07:44 07:47 WBC 6.5 Hgb 14.6 Hct 44.3 Plt Count 257 Sodium 140 Potassium 4.6 Creatinine 1.48 H Estimated GFR 50 Fasting Glucose 95 Calcium 8.6 AST 34 ALT 78 H Triglycerides 266 H Cholesterol 242 H LDL Cholesterol, Calc 150 H HDL Cholesterol 39 L 25-OH Vitamin D Total 26.5 L PTH Intact 193.6 H Ur Specific [place] 1.020 Urine Protein Negative Urine Glucose (UA) Negative Urine Blood Negative Urine Nitrite Negative Ur Leukocyte Esterase Negative Coding Level of Care Code Est Pt Level 4 (89177) Complex EM visit Add On G2211 Diagnoses Pure hypercholesterolemia E78.00 Stage 3b chronic kidney disease N18.32 Chronic kidney disease stage 3 subtype: stage 3b (GFR 30-44) Elevated ALT measurement R74.01 Vitamin D deficiency E55.9 Hyperparathyroidism E21.3 Obesity (BMI 30-39.9) E66.9 Additional Codes PHQ-9 - 66161 - PHQ-9 Billing: Yes ([id number]) Assessment & Plan Assessment & Plan (1) Pure hypercholesterolemia: Code(s): E78.00 - Pure hypercholesterolemia, unspecified Category: Medical Plan: Results of his labs done a few days ago reviewed and discussed with patient - have advised patient that his LDL cholesterol level is still elevated and has increased slightly from previous and is now at 150 mg/dl Reinforced low cholesterol diet Continue Atorvastatin 20 mg QD for now - patient again recalls that he was taking about 40 mg of Atorvastatin in the past Will have him recheck his labs and fasting lipids in 4 months for follow up (2) Chronic kidney disease, stage III (moderate): Comment: follows / [facility] Code(s): N18.30 - Chronic kidney disease, stage 3 unspecified Category: Medical Qualifiers: Chronic kidney disease stage 3 subtype: stage 3b (GFR 30-44) Qualified Code(s): N18.32 - Chronic kidney disease, stage 3b Plan: Stable; will continue to monitor his renal function closely/regularly Renal Bx done in the past only showed (+) tubular injury Follow up with nephrology (Dr. Fung) as scheduled (3) Elevated ALT measurement: Code(s): R74.01 - Elevation of levels of liver transaminase levels Category: Medical Plan: He is advised that his serum ALT is still elevated but his AST remains normal on his recent labs He admits to drinking regularly on the weekends and have advised him to cut back on his alcohol intake Have also reminded him to avoid taking too many Tylenol-containing medications (4) Vitamin D deficiency: Code(s): E55.9 - Vitamin D deficiency, unspecified Category: Medical Plan: He is advised that his Vitamin D level is still slightly low on his recent labs Continue Vitamin D3 2000 units QD - Rx refilled (5) Hyperparathyroidism: Code(s): E21.3 - Hyperparathyroidism, unspecified Category: Medical Plan: Serum PTH level was significantly elevated when last checked last year in 11/2021 and again more recently in late June 2023 It is still elevated at 196 pg/ml - is likely secondary hyperparathyroidism due to Vitamin D deficiency Will correct his Vitamin D level first and then recheck PTH level for follow up (6) Obesity (BMI 30-39.9): Code(s): E66.9 - Obesity, unspecified Category: Medical Plan: Reinforced diet/exercise as tolerated/lose weight - he has been able to lose at least 10 pounds since his last visit as he states that he has been exercising regularly at the gym for a couple of months now Plan Follow up in 4 months Orders: Orders Complete Blood Count Auto Diff 4 Months D64.9 - Anemia, unspecified Comprehensive [place]. Panel Fast 4 Months E78.00 - Pure hypercholesterolemia, unspecified Lipid Panel 4 Months E78.00 - Pure hypercholesterolemia, unspecified TSH reflex Free T4 4 Months E78.00 - Pure hypercholesterolemia, unspecified UA CC w/rflx Micro + Cult 4 Months R30.0 - Dysuria Vitamin D 25-OH Total 4 Months E55.9 - Vitamin D deficiency, unspecified Medications: Refilled cholecalciferol (vitamin D3) 50 mcg PO DAILY 90 caps 3RF 90 days E55.9 - Vitamin D deficiency, unspecified atorvastatin 20 mg PO BEDTIME 90 tabs 1RF 90 days
--- OUTSIDE RECORDS SUMMARY | 2024-12-28 15:30 | XMS_ITS | Encounter Summary ---
Author Organization [facility] Address [address] [place] [address] Phone Care Team Providers Care Keno Terminal Operator Name Role Phone Compa Whiting MD Primary Care Provider [phone] Encounter Details Date Type Department Care Team (Late st Contact Info) Description 09/06/2020 Orders Only [facility] [address] [place] [address] Provider, MD Lamin Social History [...] on filedocumented in this encounter Care Teams Keno Terminal Operator Relationship Specialty Start Date End Date Compa Whiting MD [address] [place] [address] PCP - General Internal Medicine 11/08/20 documented as of this encounter
== END 2024-12-28 14:58 | disposition home or self-care (01) ==
LOC: HO.HMCH 14:14
PROVIDERS: PCP Internal Medicine; Visit Provider Internal Medicine
DX: N18.32 Chronic kidney disease, stage 3b (principal); E78.00 Pure hypercholesterolemia, unspecified; E66.9 Obesity, unspecified; Z68.32 Body mass index [BMI] 32.0-32.9, adult; R74.01 Elevation of levels of liver transaminase levels; E55.9 Vitamin D deficiency, unspecified; E21.3 Hyperparathyroidism, unspecified

== ENCOUNTER → 2024-12-28 14:14 | Outpatient (BNVA) | payer OTHER, SELFPAY | PROVIDERS: PCP Internal Medicine; Visit Provider Internal Medicine | DX: N18.32 Chronic kidney disease, stage 3b (principal); E78.00 Pure hypercholesterolemia, unspecified; R74.01 Elevation of levels of liver transaminase levels; E55.9 Vitamin D deficiency, unspecified; E21.3 Hyperparathyroidism, unspecified; E66.9 Obesity, unspecified; D64.9 Anemia, unspecified; R30.0 Dysuria; Z68.32 Body mass index [BMI] 32.0-32.9, adult | CPT/HCPCS: 96127 ==

== ENCOUNTER 2025-01-12 16:00 | Outpatient (AMB) | payer OTHER, SELFPAY ==
--- NOTE | 2025-01-12 16:14 | HO.NEPHOV ---
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 His renal function has been stable. His BP has been at goal. He does not take NSAID's. He maintains good hydration. His Vitamin D has been low with high PTH and has been taking Vitamin D supplements. He is not a diabetic and is not on ACEI/ARB. He does not use any drugs. He denies nausea, vomiting , diarrhea, dizziness, chest pain , SOB, PND , orthopnea, epistaxis, skin rashes or edema. He feels well. [facility] Medical History Diverticulosis Allergic rhinitis Obesity (BMI 30-39.9) Vitamin D deficiency Pure hypercholesterolemia Chronic kidney disease, stage III (moderate) Surgical History Hx of colonoscopy History of surgery Family History Father No problems noted. Mother No problems noted. Sister No problems noted. Son No problems noted. Other FH: mental illness Substance abuse Social History Housing: House Alcohol intake: current Alcohol intake frequency: 0-2 drinks per day Patient Tobacco Use Status: Current everyday Tobacco user Tobacco use type: Cigarette Cigarettes Per Day: 2 Years Smoked: pt states rarely e-Cigarette/Vaping Use: Never Used Second Hand Smoke Exposure: No service: No Current occupational status: employed Current occupational exposures/hazards: No Cognitive needs: No Hearing needs: No Vision needs: Yes Review of Systems Const All systems reviewed & are unremarkable except as noted in HPI and below Physical Exam Vital Signs: Last Vital Signs Pulse 77 01/12/25 16:15 BP 130/70 01/12/25 16:15 Pulse Ox 96 01/12/25 16:15 Oxygen Delivery Method Room Air 01/12/25 16:15 BMI result Body Mass Index 33.0 Const General: comfortable and no acute distress Orientation/consciousness: patient oriented x3 HEENT Head: Yes normocephalic Mouth: Normal oral and palatal mucosa present Eyes EOM: EOMs intact bilaterally Neck Neck: Yes supple Resp Auscultation: clear to auscultation bilaterally Cardio Jugular venous distension: no JVD Rate: regular rate GI Palpation (GI): Soft to palpation Auscultation: normal bowel sounds General: Yes no CVA tenderness Back/Spine/Pelvis Back: no CVA tenderness Skin General skin exam: no rashes or lesions noted Neuro General: patient oriented x3 and moves all extremities Extrem General: Yes no pedal edema Results Reviewed Nephrology Results: Hgb, (14.0-18.0) 14.6 g/dl 12/24/24 WBC, (4.8-10.8) 6.5 X10*3/uL 12/24/24 Plt Count, (160-400) 257 X10*3/uL 12/24/24 Sodium, (135-145) 140 mmol/L 12/24/24 Potassium, (3.3-5.1) 4.6 mmol/L 12/24/24 Chloride, (96-108) 108 mmol/L 12/24/24 Carbon Dioxide, (22-29) 24 mmol/L 12/24/24 BUN, (9-16) 24 mg/dL H 12/24/24 Creatinine, (0.5-1.4) 1.48 mg/dL H 12/24/24 Calcium, (8.4-10.2) 8.6 mg/dL 12/24/24 PTH Intact, (8.7-77.1) 193.6 pg/mL H 12/20/24 Urine Protein, (Neg-Trace) Negative mg/dL 12/24/24 Urine Creatinine 323.67 mg/dL 12/20/24 Protein/Creatinin Ratio, (<0.2) 0.04 12/20/24 Assessment & Plan Assessment & Plan (1) Chronic kidney disease, stage III (moderate): Comment: follows / [facility] Code(s): N18.30 - Chronic kidney disease, stage 3 unspecified Category: Medical Qualifiers: Chronic kidney disease stage 3 subtype: stage 3b (GFR 30-44) Qualified Code(s): N18.32 - Chronic kidney disease, stage 3b (2) Secondary hyperparathyroidism (of renal origin): Code(s): N25.81 - Secondary hyperparathyroidism of renal origin Category: Medical (3) Vitamin D deficiency: Code(s): E55.9 - Vitamin D deficiency, unspecified Category: Medical Plan Timur has CKD 3 from tubular injury in the past . His serum creatinine settled close to 1.5 but has not recovered further, but stable. His BP is at goal. He is not a diabetic or hypertensive. He is on Vitamin D replacement, which I increased the dose . He may need a Sestamibi scan. He avoids NSAID's and maintain good hydration. I ordered follow up blood work. He needs to loose weight. Further management is pending evolving data Orders: Orders Creatinine 6 Months N18.32 - Chronic kidney disease, stage 3b, N25.81 - Secondary hyperparathyroidism of renal origin Blood Urea Nitrogen 6 Months N18.32 - Chronic kidney disease, stage 3b, N25.81 - Secondary hyperparathyroidism of renal origin Electrolytes 6 Months N18.32 - Chronic kidney disease, stage 3b, N25.81 - Secondary hyperparathyroidism of renal origin Coding Level of Care Code Est Pt Level 4 (89611) Diagnoses Stage 3b chronic kidney disease N18.32 Chronic kidney disease stage 3 subtype: stage 3b (GFR 30-44) Secondary hyperparathyroidism (of renal origin) N25.81 Vitamin D deficiency E55.9
[2025-01-12 16:15] VITALS: BP 130/70; PULSE 77; O2SAT 96; BMI 33.0
--- OUTSIDE RECORDS SUMMARY | 2025-01-12 16:28 | XMS_ITS | Encounter Summary ---
Author Organization [facility] Address [address] [place] [address] Phone Care Team Providers Care Sequencing Machine Operator Name Role Phone Compa Whiting MD Primary Care Provider [phone]- [phone] Encounter Details Date Type Department Care Team (Late st Contact Info) Description 09/06/2020 Orders Only [facility] [address] [place] [address] Provider, MD Lamin Social History [...] on filedocumented in this encounter Care Teams Sequencing Machine Operator Relationship Specialty Start Date End Date Compa Whiting MD [address] [place] [address] PCP - General Internal Medicine 11/08/20 documented as of this encounter
== END 2025-01-12 16:32 | disposition home or self-care (01) ==
LOC: HO.HKA 16:00
PROVIDERS: PCP Internal Medicine; Visit Provider Internal Medicine Nephrology
DX: N18.32 Chronic kidney disease, stage 3b (principal); N25.81 Secondary hyperparathyroidism of renal origin; E55.9 Vitamin D deficiency, unspecified
CPT/HCPCS: 99214